=== PATIENT | male | born 1950 | race Caucasian/White ===

== ENCOUNTER 2020-12-29 01:40 | Day surgery (SDC) | payer MEDICARE, SELFPAY ==
[2020-12-15 14:25] VITALS: BMI 26.3
[2020-12-29 06:59] VITALS: BP 116/69; PULSE 63; RESP 18; TEMP 36.4; O2SAT 96; BMI 26.0
[2020-12-29] MEDS: LACTATED RINGERS 1,000 ML 150 ML IV CONT (07:05)
--- NOTE | 2020-12-29 07:58 | WPDANESEPPF ---
Anes - Initial Pre Proc Eval Procedure: Operation Date: 12/29/20 08:00 Proposed Procedures p Screening Colonoscopy - Wally Moreno MD Date/Time: 12/29/20 07:58 Surgeon: Wally Moreno MD Pre Op Diagnosis: neoplasm screening Patient Data Age: 70 Gender: M Height: 1.88 m Weight: 92 kg Last Vital Signs Temp 36.4 C L 12/29/20 06:59 Pulse 63 12/29/20 06:59 Resp 18 12/29/20 06:59 BP 116/69 12/29/20 06:59 Pulse Ox 96 12/29/20 06:59 Allergies Allergy/AdvReac Type Severity Reaction Status Date / Time No Known Allergies Allergy Verified 12/29/20 06:57 Home Medications Medication Instructions Recorded Confirmed Type carbamazepine 200 mg tablet 200 mg PO Q12H #180 tablet 12/21/19 12/15/20 Rx atorvastatin 20 mg tablet See Rx Instructions .ROUTE 08/21/20 12/15/20 Rx .COMPLEX #90 tablet cholecalciferol (vitamin D3) 1,250 1,250 mcg PO WEEKLY #12 cap 08/23/20 12/15/20 Rx mcg (50,000 unit) capsule fenofibrate 160 mg tablet 160 mg PO DAILY #90 tablet 08/23/20 12/15/20 Rx Patient hx anesthesia problems: none Family hx anesthesia problems: none PMFSH Past Medical History Medical History (Updated 08/21/20 @ 11:11 by Tanner Licea MD) Dyslipidemia Heart murmur Prostate cancer Right trigeminal neuralgia Vitamin D deficiency Surgical History Surgical History History of left inguinal hernia repair 07/2015 Family History Family History Mother Cerebrovascular accident Diabetes mellitus Father Family history of Alzheimer's disease Acute myocardial infarction Family history of cardiovascular disease Sibling Family history of arthritis Other Family history of malignant neoplasm Social History Social History Smoking status: Former smoker Tobacco type: cigarettes Second hand tobacco smoke exposure: No Smoking end date: 05/26/78 Alcohol intake: current Drinks per week: 1 Alcohol use details: 1 beer weekly Substance use: never Substance use type: does not use Living arrangements: with family Additional living arrangements comments: Spouse Gender identity (if verbalized by the patient): Male Spiritual care concerns: No Anes - Eval Final PreProcedure Day of Procedure 12/29/20 07:58 Patient weight: overweight Heart: regular rate and rhythm Lungs: clear to auscultation and normal air movement Airway: Mallampati scale class II Neurological: alert and oriented Last oral intake: >/= 8 hours ASA classification: III Emergent: no Anesthetic plan: proceed Anesthesia type and monitoring: general GIVS Informed Consent: The patient's anesthetic plan and its attendant risks and benefits were discussed with the patient/family/POA. Questions were solicited and answers provided to the satisfaction of the patient/family/POA.
--- NOTE | 2020-12-29 08:22 | PM.HPGS ---
History of Present Illness History of Present Illness Consent: Risks, benefits, and alternatives have been discussed and questions answered. Patient agrees to proceed with procedure. Chief complaint: neoplasm screening Narrative: Matthew Morrow is a 70 year old male here for first screening colonoscopy Review of Systems Constitutional: Constitutional: Denies headache(s) and Denies weakness Eyes: Eyes: Denies blurry vision ENT: Reports Normal hearing present, Denies headache(s) and Denies neck pain Cardiovascular: Cardiovascular: Denies chest pain and Denies dyspnea Respiratory: Respiratory: Denies dyspnea Gastrointestinal: Gastrointestinal: Reports no additional gastrointestinal complaints Genitourinary: Genitourinary: Denies dysuria Musculoskeletal: Musculoskeletal: Denies neck pain Integumentary/Breasts: Skin/Breast: Denies dry skin Neurologic: Reports Normal hearing present, Denies headache(s) and Denies weakness Psychiatric: Psychiatric: Denies anxiety Endocrine: Endocrine: Denies change in body appearance Hematologic/Lymphatic: Hematologic/Lymphatic: Denies easy bleeding Allergic/Immunologic: Allergic/Immunologic: Denies urticaria PMF Past Medical History Medical History (Updated 12/29/20 @ 08:22 by Wally Moreno MD) Colon cancer screening Dyslipidemia Heart murmur Prostate cancer Right trigeminal neuralgia Vitamin D deficiency Surgical History Surgical History History of left inguinal hernia repair 07/2015 Family History Family History Mother Cerebrovascular accident Diabetes mellitus Father Family history of Alzheimer's disease Acute myocardial infarction Family history of cardiovascular disease Sibling Family history of arthritis Other Family history of malignant neoplasm Social History Social History Smoking status: Former smoker Tobacco type: cigarettes Second hand tobacco smoke exposure: No Smoking end date: 05/26/78 Alcohol intake: current Drinks per week: 1 Alcohol use details: 1 beer weekly Substance use: never Substance use type: does not use Living arrangements: with family Additional living arrangements comments: Spouse Gender identity (if verbalized by the patient): Male Spiritual care concerns: No Meds Home Medications and Allergies Home Medications Medication Instructions Recorded Confirmed Type carbamazepine 200 mg tablet 200 mg PO Q12H #180 tablet 12/21/19 12/15/20 Rx atorvastatin 20 mg tablet See Rx Instructions .ROUTE 03/29/21 07/23/21 Rx .COMPLEX #90 tablet cholecalciferol (vitamin D3) 1,250 1,250 mcg PO WEEKLY #12 cap 08/23/20 12/15/20 Rx mcg (50,000 unit) capsule fenofibrate 160 mg tablet 160 mg PO DAILY #90 tablet 08/23/20 12/15/20 Rx Allergies Allergy/AdvReac Type Severity Reaction Status Date / Time No Known Allergies Allergy Verified 12/29/20 06:57 Vital Signs Vital Signs - 24 hr 12/29/20 06:59 Temperature 97.5 F L Pulse Rate 63 Respiratory Rate 18 Blood Pressure 116/69 Pulse Oximetry 96 Exam Const: General: comfortable and no acute distress HENMT: General nose exam: Normal nares present Eyes: General: appearance normal, both eyes and all related structures Neck: Neck: no JVD Resp: Auscultation: clear to auscultation bilaterally Cardio: Rate: regular rate Rhythm: regular rhythm GI: Inspection: non-distended GI Palp: Yes Soft to palpation Skin: General skin exam: normal color Neuro: General: gait normal Speech: normal speech Extrem: General: normal to inspection Psych: Mental Status: mental status grossly normal Assessment and Plan Assessment and plan (1) Colon cancer screening: Code(s): Z12.11 - Encounter for screening for malignant neoplasm of colon
--- NOTE | 2020-12-29 08:22 | SUR.OPER ---
Resolution Clip Lot: [id number] Exp: 2023-09-06
[2020-12-29 08:28] VITALS: BP 100/60; PULSE 53; RESP 16; O2SAT 100
[2020-12-29 08:38] VITALS: BP 106/61; BP 111/65; PULSE 50; PULSE 53; RESP 13; RESP 14; O2SAT 100; O2SAT 97
== END 2020-12-29 09:01 | disposition home or self-care (01) ==
PROVIDERS: PCP Family Medicine; Visit Provider Internal Medicine Gastroenterology
PROC: 0DJD8ZZ Inspection of Lower Intestinal Tract, Via Natural or Artificial Opening Endoscopic (ICD-10-PCS; CPT 45378; principal; 2020-12-29 08:00)
DX: Z12.11 Encounter for screening for malignant neoplasm of colon (principal); K57.30 Diverticulosis of large intestine without perforation or abscess without bleeding; K64.8 Other hemorrhoids; K63.5 Polyp of colon; K62.1 Rectal polyp; E78.5 Hyperlipidemia, unspecified; R01.1 Cardiac murmur, unspecified; E55.9 Vitamin D deficiency, unspecified; G50.0 Trigeminal neuralgia; Z87.891 Personal history of nicotine dependence
CPT/HCPCS: 45385; 88305; J2704; J7120

== ENCOUNTER 2021-08-31 09:37 | Outpatient (CLI) | payer MEDICARE, SELFPAY ==
--- NOTE | ~2021-08-31 | US_ITS ---
EXAMINATION: US aorta [facility] DATE: 08/31/2021 10:37 INDICATION: Abdominal aortic aneurysm screening with risk factors of hypercholesterolemia and prior s moking TECHNIQUE: Grayscale, color Doppler, and pulsed Doppler images of the aorta and common iliac arteries were obtained. COMPARISON: CT abdomen and pelvis dated 10/24/2017 FINDINGS: The proximal aorta measures 2.2 cm AP. The mid aorta measures 2.3 cm AP. Fusiform infrarenal abdomina l aorta measuring up to 3.7 x 3.6 cm. The right common iliac artery measures 1.5 cm. The left common iliac artery measures 1.2 cm. IMPRESSION: 1. Unchanged 3.7 cm diameter fusiform infrarenal abdominal aortic aneurysm. Reviewed, dictated and finalized at location B.
== END 2021-08-31 09:38 | disposition home or self-care (01) ==
PROVIDERS: PCP Family Medicine; Visit Provider Family Medicine
DX: I71.4 Abdominal aortic aneurysm, without rupture (principal); Z13.6 Encounter for screening for cardiovascular disorders
CPT/HCPCS: 76706

== ENCOUNTER 2021-09-14 09:20 | Outpatient (CLI) | payer MEDICARE, SELFPAY ==
--- NOTE | 2021-09-14 09:47 | ECHO_ITS ---
Patient Info Name: Matthew Morrow Age: 71 years : 1950 Gender: Male Ht: 74 in Wt: 205 lbs BSA: 2.21 m2 HR: 64 bpm BP: 110 / 72 mmHg Technical Quality: Good Exam Date: 09/14/2021 10:05 AM Exam Location: [facility] Patient Status: Outpatient Admit Date: 09/14/2021 Staff Ordering Physician: Tanner Licea MD Blow Moulding Machine Operator: Reji Carl, WILFREDO, RT Attending Provider: Tanner Licea MD Exam Type: CA echo doppler color flow Study Info Indications R01.1 - Cardiac murmur, unspecified Complete two-dimensional, color flow and Doppler transthoracic echocardiogram is performed. Strain analysis performed. Summary 1. Complete two-dimensional, color flow and Doppler transthoracic echocardiogram is performed. 2. Left ventricular chamber dimension is normal. 3. Left ventricular systolic function is normal, estimated at 65-70%. 4. The left ventricular diastolic function is normal. 5. E/e' 9 is minimally elevated. 6. Global longitudinal strain is normal at -22.3%. 7. There is moderate aortic valve sclerosis. 8. There is mild aortic valve stenosis with a peak velocity of 225 cm/s, mean gradient of 9 mmHg, and aortic valve area of 1.9 cm2. 9. There is mild to moderate aortic valve regurgitation. Left Ventricle E/e' 9 is minimally elevated. Global longitudinal strain is normal at -22.3%. Left ventricular chamber dimension is normal. Left ventricular systolic function is normal, estimated at 65-70%. The left ventricular diastolic function is normal. Right Ventricle Right ventricular chamber dimension is normal. Right ventricular systolic function is normal. Left Atria Left atrial chamber dimension is normal. Right Atria Right atrial chamber dimension is normal. Aortic Valve The aortic valve is trileaflet. There is moderate aortic valve sclerosis. There is mild aortic valve stenosis with a peak velocity of 225 cm/s, mean gradient of 9 mmHg, and aortic valve area of 1.9 cm2. There is mild to moderate aortic valve regurgitation. Pulmonic Valve There is no pulmonic regurgitation. Mitral Valve There is no mitral valve stenosis. There is no mitral valve regurgitation. Tricuspid Valve There is no tricuspid valve regurgitation. Pericardium/Pleural There is no pericardial effusion. Inferior Vena Cava Normal inferior vena cava with >50% collapse upon inspiration consistent with normal right atrial pressure, 5 mmHg. Aorta The aortic root size at the sinus of Valsalva is normal. Left Ventricular Outflow Tract Name Value Normal LVOT 2D LVOT Diameter 2.1 cm LVOT Doppler LVOT Peak Gradient 6 mmHg LVOT Mean Gradient 3 mmHg LVOT VTI 27 cm LVOT VTI/AV VTI Ratio 0.6 LVOT Stroke Volume 93 ml LVOT CO 5.2 l/min LVOT CI 2.4 l/min/m2 Mitral Valve Name Value No
== END 2021-09-14 09:21 | disposition home or self-care (01) ==
PROVIDERS: PCP Family Medicine; Visit Provider Family Medicine
DX: R01.1 Cardiac murmur, unspecified (principal); I35.1 Nonrheumatic aortic (valve) insufficiency
CPT/HCPCS: 93306

== ENCOUNTER 2022-02-26 09:36 | Outpatient (CLI) | payer MEDICARE, SELFPAY ==
[2022-02-26 18:39] LABS: Alanine Aminotransferase 18 U/L (6-50); Albumin Level 4.3 g/dL (3.5-5.1); Alkaline Phosphatase 33 U/L (38-126); Anion Gap 11 mmol/L (8-16); Aspartate Amino Transferase 50 U/L (17-59); Bilirubin,Total 0.3 mg/dL (0.2-1.3); Blood Urea Nitrogen 25 mg/dL (9-20); Calcium 8.8 mg/dL (8.4-10.2); Carbon Dioxide 25 mmol/L (22-30); Chloride 107 mmol/L (98-107); Estimated Glomerular Filt Rate > 60; Glucose 120 mg/dL (65-110); Sodium 143 mmol/L (137-145)
[2022-02-26 20:03] LABS: Hemoglobin A1C 5.9 % (<5.7)
== END 2022-02-26 09:37 | disposition home or self-care (01) ==
LOC: ANHGOSHLAB 09:38
PROVIDERS: PCP Family Medicine; Visit Provider Family Medicine
DX: E78.5 Hyperlipidemia, unspecified (principal); Z51.81 Encounter for therapeutic drug level monitoring; Z79.899 Other long term (current) drug therapy; I10 Essential (primary) hypertension; R73.03 Prediabetes
CPT/HCPCS: 36415; 80053; 83036

== ENCOUNTER 2022-09-03 08:57 | Outpatient (CLI) | payer MEDICARE, SELFPAY ==
[2022-09-03 19:10] LABS: Basophils Absolute Auto 0.1 K/mm3 (0.0-0.1); Basophils Percent Auto 1.3 % (0.2-1.2); Eosinophils Absolute Auto 0.2 K/mm3 (0-0.3); Eosinophils Percent Auto 4.3 % (0-4.4); Hematocrit 40.3 % (42.0-52.0); Hemoglobin 13.3 g/dL (14.0-18.0); Immature Granulocyte Absolute 0.02 K/mm3 (0.00-0.031); Immature Granulocyte Percent A 0.4 % (0-0.5); Lymphocytes Absolute Auto 1.32 K/mm3 (0.9-3.2); Lymphocytes Percent Auto 24.8 % (18.3-44.2); Mean Corpuscular Hemoglobin 30.9 pg (26-34); Mean Corpuscular Volume 93.7 fl (80-100); Mean Platelet Volume 10.1 fl (7.4-10.4); Monocytes Absolute Auto 0.4 K/mm3 (0.1-0.6); Monocytes Percent Auto 8.3 % (2.6-8.5); Neutrophils Absolute Auto 3.2 K/mm3 (1.3-6.7); Neutrophils Percent Auto 60.9 % (45.5-73.1); Platelet Count Result 257 k/mm3 (150-375); Red Cell Distribution Width 12.5 % (11.5-14.5); White Blood Count 5.3 K/mm3 (4.5-10.0)
[2022-09-03 19:14] LABS: Hemoglobin A1C 5.8 % (<5.7)
[2022-09-03 19:23] LABS: Alanine Aminotransferase 21 U/L (6-50); Albumin Level 4.4 g/dL (3.5-5.1); Alkaline Phosphatase 35 U/L (38-126); Anion Gap 5 mmol/L (8-16); Aspartate Amino Transferase 35 U/L (17-59); Bilirubin,Total 0.4 mg/dL (0.2-1.3); Blood Urea Nitrogen 21 mg/dL (9-20); Calcium 9.1 mg/dL (8.4-10.2); Carbon Dioxide 28 mmol/L (22-30); Chloride 108 mmol/L (98-107); Cholesterol 186 mg/dL (0-200); Estimated Glomerular Filt Rate > 60; Glucose 109 mg/dL (65-110); HDL Direct 42 mg/dL; Potassium 4.3 mmol/L (3.4-5.0); Sodium 141 mmol/L (137-145); Triglycerides 132 mg/dL (<150)
[2022-09-03 19:34] LABS: LDL Cholesterol Direct 107 mg/dL
[2022-09-03 19:49] LABS: Vitamin D 25 Hydroxy 48.7 ng/mL
== END 2022-09-03 08:58 | disposition home or self-care (01) ==
LOC: ANHGOSHLAB 08:58
PROVIDERS: PCP Family Medicine; Visit Provider Family Medicine
DX: E78.5 Hyperlipidemia, unspecified (principal); E55.9 Vitamin D deficiency, unspecified; G50.0 Trigeminal neuralgia; Z13.29 Encounter for screening for other suspected endocrine disorder; E53.8 Deficiency of other specified B group vitamins; C61 Malignant neoplasm of prostate; Z79.899 Other long term (current) drug therapy; R73.03 Prediabetes
CPT/HCPCS: 36415; 80053; 80061; 82306; 82607; 83036; 84443; 85025

== ENCOUNTER 2023-02-25 10:34 | Outpatient (CLI) | payer MEDICARE, SELFPAY ==
[2023-02-25 19:30] LABS: Alanine Aminotransferase 18 U/L (6-50); Albumin Level 4.4 g/dL (3.5-5.1); Alkaline Phosphatase 33 U/L (38-126); Anion Gap 10 mmol/L (8-16); Aspartate Amino Transferase 30 U/L (17-59); Bilirubin,Total 0.5 mg/dL (0.2-1.3); Blood Urea Nitrogen 29 mg/dL (9-20); Carbon Dioxide 22 mmol/L (22-30); Chloride 108 mmol/L (98-107); Estimated Glomerular Filt Rate 54; Glucose 94 mg/dL (65-110); Potassium 4.3 mmol/L (3.4-5.0); Sodium 140 mmol/L (137-145)
[2023-02-25 20:10] LABS: Hemoglobin A1C 5.8 % (<5.7)
== END 2023-02-25 10:35 | disposition home or self-care (01) ==
PROVIDERS: PCP Family Medicine; Visit Provider Family Medicine
DX: R73.03 Prediabetes (principal); E78.5 Hyperlipidemia, unspecified; Z79.899 Other long term (current) drug therapy
CPT/HCPCS: 36415; 80053; 83036

== ENCOUNTER 2023-09-08 10:03 | Outpatient (CLI) | payer MEDICARE, SELFPAY ==
[2023-09-08 11:07] LABS: Alanine Aminotransferase 16 U/L (6-50); Albumin Level 4.5 g/dL (3.5-5.1); Alkaline Phosphatase 39 U/L (38-126); Anion Gap 7 mmol/L (4-12); Aspartate Amino Transferase 29 U/L (17-59); Bilirubin,Total 0.5 mg/dL (0.2-1.3); Blood Urea Nitrogen 23 mg/dL (9-20); Calcium 9.8 mg/dL (8.4-10.2); Carbon Dioxide 24 mmol/L (22-30); Chloride 110 mmol/L (98-107); Cholesterol 185 mg/dL (0-200); Estimated Glomerular Filt Rate > 60; Glucose 115 mg/dL (65-110); HDL Direct 48 mg/dL; Potassium 4.4 mmol/L (3.4-5.0); Sodium 141 mmol/L (137-145); Triglycerides 121 mg/dL (<150)
[2023-09-08 11:19] LABS: LDL Cholesterol Direct 102 mg/dL
[2023-09-08 11:57] LABS: Vitamin B12 > 1000.0 pg/mL (239-931)
[2023-09-08 12:03] LABS: Basophils Absolute Auto 0.1 K/mm3 (0.0-0.1); Eosinophils Absolute Auto 0.2 K/mm3 (0-0.3); Eosinophils Percent Auto 3.8 % (0-4.4); Hemoglobin 13.7 g/dL (14.0-18.0); Immature Granulocyte Absolute 0.02 K/mm3 (0.00-0.031); Immature Granulocyte Percent A 0.4 % (0-0.5); Lymphocytes Absolute Auto 1.03 K/mm3 (0.9-3.2); Lymphocytes Percent Auto 20.4 % (18.3-44.2); Mean Corpuscular HGB Conc 33.4 g/dl (32-36); Mean Corpuscular Hemoglobin 31.1 pg (26-34); Mean Corpuscular Volume 93.2 fl (80-100); Mean Platelet Volume 9.8 fl (7.4-10.4); Monocytes Absolute Auto 0.4 K/mm3 (0.1-0.6); Monocytes Percent Auto 7.1 % (2.6-8.5); Neutrophils Absolute Auto 3.4 K/mm3 (1.3-6.7); Neutrophils Percent Auto 67.3 % (45.5-73.1); Platelet Count Result 257 k/mm3 (150-375); Red Cell Distribution Width 12.5 % (11.5-14.5); White Blood Count 5.1 K/mm3 (4.5-10.0)
[2023-09-08 12:34] LABS: Hemoglobin A1C 5.8 % (<5.7)
[2023-09-08 15:41] LABS: Vitamin D 25 Hydroxy 38.9 ng/mL
== END 2023-09-08 10:04 | disposition home or self-care (01) ==
LOC: ANHGOSHLAB 10:07
PROVIDERS: PCP Family Medicine; Visit Provider Family Medicine
DX: I35.0 Nonrheumatic aortic (valve) stenosis (principal); E53.8 Deficiency of other specified B group vitamins; R73.03 Prediabetes; G50.0 Trigeminal neuralgia; Z13.29 Encounter for screening for other suspected endocrine disorder; Z79.899 Other long term (current) drug therapy; E78.5 Hyperlipidemia, unspecified; E55.9 Vitamin D deficiency, unspecified
CPT/HCPCS: 36415; 80053; 80061; 82306; 82607; 83036; 84443; 85025

== ENCOUNTER 2023-09-18 08:49 | Outpatient (CLI) | payer MEDICARE, SELFPAY ==
--- NOTE | ~2023-09-18 | US_ITS ---
EXAMINATION: US aorta DATE: 09/18/2023 10:17 INDICATION: Abdominal aortic aneurysm without rupture TECHNIQUE: Grayscale, color Doppler, and pulsed Doppler images of the aorta and common iliac arteries were obtained. COMPARISON: None. FINDINGS: The proximal aorta measures 3.1 cm. The mid aorta measures 2.5 cm. Fusiform distal abdominal aortic a neurysm measuring up to 4.1 cm in maximal AP diameter The right common iliac artery measures 7 mm. Th e left common iliac artery measures 7 mm. IMPRESSION: 1. Minimal increase in size of a previously 3.7 cm, currently 4.1 cm fusiform distal abdominal aortic aneurysm. Reviewed, dictated and finalized at location A. IMPRESSION: 1. Minimal increase in size of a previously 3.7 cm, currently 4.1 cm fusiform d istal abdominal aortic aneurysm.
== END 2023-09-18 08:50 | disposition home or self-care (01) ==
PROVIDERS: PCP Family Medicine; Visit Provider Family Medicine
DX: I71.40 Abdominal aortic aneurysm, without rupture, unspecified (principal)
CPT/HCPCS: 76775

== ENCOUNTER 2024-03-16 08:59 | Outpatient (CLI) | payer MEDICARE, SELFPAY ==
[2024-03-16 13:06] LABS: Alanine Aminotransferase 17 U/L (6-50); Albumin Level 4.6 g/dL (3.5-5.1); Alkaline Phosphatase 35 U/L (38-126); Anion Gap 8 mmol/L (4-12); Aspartate Amino Transferase 26 U/L (17-59); Bilirubin,Total 0.4 mg/dL (0.2-1.3); Blood Urea Nitrogen 23 mg/dL (9-20); Calcium 9.6 mg/dL (8.4-10.2); Carbon Dioxide 27 mmol/L (22-30); Chloride 106 mmol/L (98-107); Estimated Glomerular Filt Rate > 60; Glucose 100 mg/dL (65-110); Potassium 5.1 mmol/L (3.4-5.0); Sodium 141 mmol/L (137-145)
[2024-03-16 16:58] LABS: Hemoglobin A1C 6.2 % (<5.7)
== END 2024-03-16 09:00 | disposition home or self-care (01) ==
LOC: ANHGOSHLAB 09:00
PROVIDERS: PCP Family Medicine; Visit Provider Family Medicine
DX: E78.5 Hyperlipidemia, unspecified (principal); Z79.899 Other long term (current) drug therapy; R73.03 Prediabetes
CPT/HCPCS: 36415; 80053; 83036

== ENCOUNTER 2024-06-16 01:26 | Day surgery (SDC) | payer MEDICARE, SELFPAY ==
[2024-06-03 15:48] VITALS: BMI 26.2
--- NOTE | 2024-06-16 07:18 | P.PNAN_ITS ---
Anes - Initial Pre Proc Eval Procedure: Operation Date: 06/16/24 08:30 Proposed Procedures p Colonoscopy - Wally Moreno MD Date/Time: 06/16/24 07:18 Surgeon: Wally Moreno MD Pre Op Diagnosis: hx of colon polyps Patient Data Age: 74 Gender: M Height: 1.88 m Weight: 92.7 kg Allergies Allergy/AdvReac Type Severity Reaction Status Date / Time No Known Allergies Allergy Verified 06/03/24 15:46 Home Medications ?Medication ?Instructions ?Recorded ?Confirmed ?Type carbamazepine 200 mg tablet 200 mg PO Q12H #180 tabs 12/21/19 06/03/24 Rx denosumab 60 mg/mL subcutaneous 60 mg subcut [id number] 02/19/21 06/03/24 History syringe (Prolia) leuprolide (3 month) 22.5 mg (3 22.5 mg IM [id number] 02/19/21 06/03/24 History month) intramuscular syringe kit (Lupron Depot) calcium carbonate (Calcium 600) 600 mg PO DAILY 09/03/22 06/03/24 History cyanocobalamin (vitamin B-12) 1,000 mcg sublingual DAILY #90 tabs 09/04/22 06/03/24 Rx 1,000 mcg sublingual tablet fenofibrate 160 mg tablet 160 mg PO DAILY #90 tabs 12/31/23 06/03/24 Rx atorvastatin 20 mg tablet 20 mg PO QHS #90 tabs 04/01/24 06/03/24 Rx cholecalciferol (vitamin D3) 50 50 mcg PO DAILY #90 tabs 04/01/24 06/03/24 Rx mcg (2,000 unit) tablet Patient hx anesthesia problems: none Family hx anesthesia problems: none Results Review: All pre-operative results and documents have been reviewed as part of the pre- operative evaluation. [facility] Past Medical History Medical History Vitamin B12 deficiency Aortic valvar stenosis Aneurysm of infrarenal abdominal aorta Pre-diabetes Vitamin D deficiency Prostate cancer (~2017) Dyslipidemia Right trigeminal neuralgia Surgical History Surgical History History of left inguinal hernia repair 07/2015 Family History Family History Mother Cerebrovascular accident Diabetes mellitus Father Family history of Alzheimer's disease Acute myocardial infarction Family history of cardiovascular disease Sibling Family history of arthritis Other Family history of malignant neoplasm Social History Social History Smoking status: Former smoker Tobacco type: cigarettes Second hand tobacco smoke exposure: No Smoking end date: 01/25/72 Alcohol intake: current Drinks per week: 1 Alcohol use details: 1 beer weekly Substance use: never Substance use type: does not use Lack of Transportation: No Lack of Food: Never True Current Housing: I Have Housing Concerned About Future Housing: No Difficulty Paying Gas/Electric Bills: No Difficulty Paying for Meds: No Currently Unemployed: No Education: Bachelor's Degree Difficulty w/ Childcare or Family Care: No Living arrangements: with family Additional living arrangements comments: Spouse Occupation/Education: retired Gender identity (if verbalized by the patient): Male Sexual Orientation (if Verbalized by the Patient): Straight or Heterosexual Spiritual care concerns: No Anes - Eval Final PreProcedure Day of Procedure 06/16/24 07:18 Patient weight: overweight Heart: regular rate and rhythm Lungs: clear to auscultation Airway: Mallampati scale class II Neurological: alert and oriented Last oral intake: >/= 8 hours ASA classification: III Emergent: no Anesthetic plan: proceed Anesthesia type and monitoring: general GIVS and standard monitoring Results Review: All pre-operative results and documents have been reviewed as part of the pre- operative evaluation. Informed Consent: The patient's anesthetic plan and its attendant risks and benefits were discussed with the patient/family/POA. Questions were solicited and answers provided to the satisfaction of the patient/family/POA.
[2024-06-16 07:20] VITALS: BP 91/75; PULSE 75; RESP 18; TEMP 36.1; O2SAT 95
[2024-06-16] MEDS: LACTATED RINGERS 1,000 ML 150 ML IV CONT (07:32)
--- NOTE | 2024-06-16 07:59 | PM.HPGS ---
History of Present Illness History of Present Illness Consent: Risks, benefits, and alternatives have been discussed and questions answered. Patient agrees to proceed with procedure. Chief complaint: hx of colon polyps Narrative: Matthew Morrow is a 74 year old male with colon polyps in 2020 Review of Systems Review of Systems: All systems reviewed & are unremarkable except as noted in HPI and below PMFSH Past Medical History Medical History (Updated 06/16/24 @ 08:00 by Wally Moreno MD) Colon polyp Vitamin B12 deficiency Aortic valvar stenosis Aneurysm of infrarenal abdominal aorta Pre-diabetes Vitamin D deficiency Prostate cancer (~2017) Dyslipidemia Right trigeminal neuralgia Surgical History Surgical History History of left inguinal hernia repair 07/2015 Family History Family History Mother Cerebrovascular accident Diabetes mellitus Father Family history of Alzheimer's disease Acute myocardial infarction Family history of cardiovascular disease Sibling Family history of arthritis Other Family history of malignant neoplasm Social History Social History Smoking status: Former smoker Tobacco type: cigarettes Second hand tobacco smoke exposure: No Smoking end date: 01/25/72 Alcohol intake: current Drinks per week: 1 Alcohol use details: 1 beer weekly Substance use: never Substance use type: does not use Lack of Transportation: No Lack of Food: Never True Current Housing: I Have Housing Concerned About Future Housing: No Difficulty Paying Gas/Electric Bills: No Difficulty Paying for Meds: No Currently Unemployed: No Education: Bachelor's Degree Difficulty w/ Childcare or Family Care: No Living arrangements: with family Additional living arrangements comments: Spouse Occupation/Education: retired Gender identity (if verbalized by the patient): Male Sexual Orientation (if Verbalized by the Patient): Straight or Heterosexual Spiritual care concerns: No Meds Home Medications and Allergies Home Medications ?Medication ?Instructions ?Recorded ?Confirmed ?Type carbamazepine 200 mg tablet 200 mg PO Q12H #180 tabs 12/21/19 06/16/24 Rx denosumab 60 mg/mL subcutaneous 60 mg subcut [id number] 02/19/21 06/03/24 History syringe (Prolia) leuprolide (3 month) 22.5 mg (3 22.5 mg IM [id number] 02/19/21 06/03/24 History month) intramuscular syringe kit (Lupron Depot) calcium carbonate (Calcium 600) 600 mg PO DAILY 09/03/22 06/16/24 History cyanocobalamin (vitamin B-12) 1,000 mcg sublingual DAILY #90 tabs 09/04/22 06/16/24 Rx 1,000 mcg sublingual tablet fenofibrate 160 mg tablet 160 mg PO DAILY #90 tabs 12/31/23 06/16/24 Rx atorvastatin 20 mg tablet 20 mg PO QHS #90 tabs 04/01/24 06/16/24 Rx cholecalciferol (vitamin D3) 50 50 mcg PO DAILY #90 tabs 04/01/24 06/16/24 Rx mcg (2,000 unit) tablet Allergies Allergy/AdvReac Type Severity Reaction Status Date / Time No Known Allergies Allergy Verified 06/03/24 15:46 Vital Signs Vital Signs - 24 hr 06/16/24 07:20 Temperature 97 F L Pulse Rate 75 Respiratory Rate 18 Blood Pressure 91/75 L Pulse Oximetry 95 Oxygen Delivery Room Air Exam Const: General: comfortable and no acute distress HENMT: Face/Nose/Sinus: Normal nares present Eyes: General: appearance normal, both eyes and all related structures Neck: Neck: no JVD Resp: Auscultation: clear to auscultation bilaterally Cardio: Rate: regular rate Rhythm: regular rhythm GI: Inspection: non-distended GI Palp: Yes Soft to palpation Skin: General skin exam: normal color Neuro: Speech: normal speech Extrem: General: normal to inspection Psych: Mental Status: mental status grossly normal Assessment and Plan Assessment and plan (1) Colon polyp: Code(s): K63.5 - Polyp of colon Status: Acute Assessment and Plan: colonoscopy
[2024-06-16 08:13] VITALS: BP 90/55; PULSE 61; RESP 18; O2SAT 95
[2024-06-16 08:23] VITALS: BP 83/55; PULSE 61; RESP 16; O2SAT 96
[2024-06-16 08:33] VITALS: BP 102/61; PULSE 57; RESP 16; O2SAT 97
--- OUTSIDE RECORDS SUMMARY | 2024-06-17 21:08 | XMS_ITS ---
Author Organization [facility] Address [address] [place] [address] Care Team Providers Care Pot Sander Name Role Phone Carmelo Espinosa MD Unavailable [phone] Denny Dubose MD Unavailable Tyson Licea MD Primary Care Provider Active Problems Problem Noted Date Diagnosed Date Trigeminal neuralgia 01/06/2020 Assessment & Plan (01/05/2021 8:31 AM CDT): Patient continues on carbamazepine 200 mg b.i.d. for symptomatic suppression of trigeminal neuralgia with good tolerability and efficacy. I have renewed his carbamazepine 200 mg b.i.d.. He will follow-up in neurology clinic in a year. Assessment & Plan (01/06/2020 11:08 AM CDT): Patient has history of right trigeminal neuralgia with prior symptomatic benefit with carbamazepine. At the time of my last visit with him in August 2019, since he has been asymptomatic for extended period of time, he was mutually decided to try weaning him off medication and assess outcome. About 2 weeks following cessation of therapy, he had resumption of his previous electrical shocks in the distribution of the right ophthalmic and right maxillary divisions of the trigeminal nerve. Per my earlier discussion with him, he resumed the carbamazepine 200 mg b.i.d. with prompts cessation of symptoms. He remains on therapy at this time with no tolerability issues. I would recommend continuing on therapy with carbamazepine 200 mg b.i.d. for the foreseeable future. I have renewed his carbamazepine with a 90 day supply and 3-90 day refill extensions. I will plan on seeing him back in 1 year's time. Medication monitoring encounter 01/06/2020 Assessment & Plan (01/06/2020 11:09 AM CDT): Patient has had recent sodium level and CBC performed, and those have been reviewed by me today with him being on carbamazepine treatment. He will need sodium levels and CBC performed on a yearly basis while on carbamazepine therapy, and those can be obtained with his yearly follow-up. Adenocarcinoma of prostate 11/12/2017 Current Oncology Plans DENOSUMAB (PROLIA) INJECTION* Plan Start Date:01/21/2019 Plan Provider:Denny Dubose MD Linked Problems Adenocarcinoma of prostate ( HCC) Treatment Medications No medications scheduled. Leuprolide Every 3 Months - Prostate* Plan Start Date:12/05/2020 Plan Provider:Denny Dubose MD Linked Problems Adenocarcinoma of prostate ( HCC) Treatment Medications Current Day (Day 1 , Cycle 17 - Planned for 08/17/2024) Next Day (Day 1, Cycle 18 - Planned for 11/09/2024) leuprolide (3 month) (ELIGARD)leuprolide (ELIGARD) leuprolide (3 month) (ELIGARD) subcutaneous injection 22.5 mg leuprolide (3 month) (ELIGARD) subcutaneous injection 22.5 mg Past Plans Line Care Plan Name Start Date Discontinue Date Treatment Medications Discontinue Reason Plan Provider IV MAINTENANCE THERAPY PLAN 08/21/2021 08/05/2023 No medications scheduled. Automatic discontinuation of dormant plans Denny Dubose MD Oncology Chemotherapy Treatment Plan Name Start Date Discontinue Date Treatment Medications Discontinue Reason Plan Provider Cycles DOCEtaxel / PredniSONE 21 day Cycles - Prostate 11/20/2017 07/22/2018 DOCEtaxel (TAXOTERE)DOCE taxel (TAXOTERE) IVPB in 250 mL (vial 20mg/mL) Therapy Complete Denny Dubose MD -1 of 7 cycles Oncology Supportive Care Plan Name Start Date Discontinue Date Treatment Medications Discontinue Reason Plan Provider IV MAINTENANCE THERAPY PLAN 12/11/2017 08/05/2023 No medications scheduled. Automatic discontinuation of dormant plans Clint Bruno MD PhD Radiation Treatments * No radiation treatments are documented for this patient in [facility]. Treatments may have been administered in another system. Lifetime Dose Tracking * Chemical Lifetime Dose Automatic Entry Manual Entr y DLP 6,449 mGycm 6,449 mGycm 0 mGycm
--- OUTSIDE RECORDS SUMMARY | 2024-06-17 21:08 | XMS_ITS | Continuity of Care Document ---
Author Organization [facility] Address [address] [address] [place] [address] Phone Care Team Providers Care Camp Manager Name Role Phone [facility] Unavailable [...] Diagnoses Date Provider Providers Copied on Encounter [facility], [address] [place] [address] [facility] [address], [place], [place], [id number], tel:[phone] [facility] No Information 9 [facility] . [address] [place] [address], [id number], [place]. tel:[phone] Consulting Provider: Gillian Avina, [address] [place], [address]. tel:[phone] [facility], [address] [place], [place] [address] [address], [place], [place], [id number], tel:[phone] [facility] No Information 4-200 8 [facility] . [address] [place] [address], [id number], [place]. tel:[phone] Referring Provider: Alok Slater OD Tracie, [address] [facility] [address] [facility], [place], [address]. tel:[phone] lting Provider: Gillian Avina, [address] [place], [address]. tel:[phone] [facility], [address], [place], [place], [id number], tel:[phone] [facility] No Information 0-200 8 Slater OD Alok. [address] [facility] [facility] [address] , [address], [place], [address], [place]. tel:[phone] Family History Family Member Type Diagnosis Age At Onset No Information Payers Payer name Insurance type Covered republican ID Authoriza tion(s) No Information Social History [...]
--- OUTSIDE RECORDS SUMMARY | 2024-06-17 21:08 | XMS_ITS | Referral Summary ---
Author Organization [facility] Address [address] [place] [address] Care Team Providers Care Maintenance Clerk Name Role Phone Carmelo Espinosa MD Unavailable [phone] Denny Dubose MD Unavailable Tyson Licea MD Primary Care Provider Encounters Date Type Department Care Team Description 05/25/2024 10:45 AM PLANT CLERK Infusion [facility] - Infusion [address] [facility] Floor [address] [place] [address] Adenocarcinoma of prostate (HCC) (Primary Dx) 05/25/2024 8:45 AM PLANT CLERK Lab [facility] - Lab Collection [address] [facility] 5 [place] [address] Adenocarcinoma of prostate (HCC) 05/25/2024 9:45 AM PLANT CLERK Office Visit [facility] Oncology [address] [facility] Floor 5 [place] [address] Denny Dubose MD Adenocarcinoma of prostate (HCC) (Primary Dx) from Last 3 Months Allergies No known active allergies Medications atorvastatin (LIPITOR) 20 mg tablet 12/24/2018 Active leuprolide, 3 month, (ELIGARD) 22.5 mg syringe Inject 22.5 mg under the skin as directed Active denosumab (PROLIA) 60 mg/mL syringe Inject under the skin once One dose every 6 months Active cholecalciferol (VITAMIN D-3) 50,000 unit capsule 10/01/2020 Active fenofibrate (TRIGLIDE) 160 mg tablet Take 1 tablet (160 mg total) by mouth daily Active calcium carb and citrate-vitD3 600 mg-12.5 mcg (500 unit) tablet extended release Take by mouth daily Active CYANOCOBALAMIN (VIT B-12) 1,000 MCG/15 ML ORAL LIQUIDIndicatio ns:Prevention of Vitamin B12 Deficiency Take 15 mL (1,000 mcg total) by mouth daily Patients takes every other day Active carBAMazepine (TEGretol) 200 mg tabletIndicatio ns:Trigeminal neuralgia Take 1 Tablet (200 mg) by mouth 2 times daily. 180 tablet 3 01/05/2024 Active Active Problems Problem Noted Date Diagnosed Date [...] his yearly follow-up. Adenocarcinoma of prostate 11/12/2017 Immunizations Name Administration Dates Next Due COVID-19 MRNA (MODERNA) .5 M L (50 MCG) VACCINE (12 YEARS AND UP) 02/10/2023 Influenza, Quadrivalent, Hig h Dose, Preservative Free, Intrr 03/12/2023,01/20/2020 Influenza, Quadrivalent, Spl it, Preservative Free, Intramuscular 02/14/2022 Influenza, Trivalent, High D ose, Split, Preservative Free, Intramuscular 03/11/2019,04/21/2018 Influenza, Unspecified 03/12/2023 Pfizer SARS-CoV-2 Monovalent Vaccination (12+ Yrs) PURPLE 08/10/2020,07/20/2020 Pneumococcal Conjugate PCV 13 07/29/2018 Pneumococcal Polysaccharide PPV23 12/01/2019 Tdap 08/19/2022 ZOSTER Recombinant 10/03/2018,07/30/2018 Social History Tobacco Use Types Packs/Day Years Used Date Smoking Tobacco: Former Cigarettes Q uit: 1981 Smokeless Tobacco: Never Sex and Gender Information Value Date Recorded Sex Assigned at Not on file Legal Sex Male 12:38 PM CDT Gender Identity Male 04/15/2019 11:26 PM PLANT CLERK Sexual Orientation Straight 10/08/2018 10 :46 AM CDT Last Filed Vital Signs Vital Sign Reading Time Taken Comments Blood Pressure 103/69 05/25/2024 8:33 AM PLANT CLERK Pulse 61 05/25/2024 8:33 AM PLANT CLERK Temperature 36.5 ??C (97.7 ??F) 05/25/2024 8:33 AM CS T Respiratory Rate 18 05/25/2024 8:33 AM PLANT CLERK Oxygen Saturation 96% 05/25/2024 8:33 AM PLANT CLERK Inhaled Oxygen Concentration - - Weight 93.6 kg (206 lb 6.4 oz) 05/25/2024 8:33 A M PLANT CLERK Height 188 cm (6' 2 ) 01/07/2024 8:20 AM CDT Body Mass Index 26.5 01/07/2024 8:20 AM CDT Plan of Treatment Not on file Procedures Procedure Name Priority Date/Time Associated Diagnosis Comments EGFR Routine 05/25/2024 8:23 AM PLANT CLERK Adenocarcinoma of prostate (HCC) DIFFERENTIAL AUTO Routine 05/25/2024 8:2 3 AM PLANT CLERK Adenocarcinoma of prostate (HCC) LACTATE DEHYDROGENASE Routine 05/25/2024 8:23 AM PLANT CLERK Adenocarcinoma of prostate (HCC) CBC WITH AUTO DIFFERENTIAL Routine 05/25/2024 8:23 AM PLANT CLERK Adenocarcinoma of prostate (HCC) COMPREHENSIVE METABOLIC PANEL Routine 05/25/2024 8:23 AM PLANT CLERK Adenocarcinoma of prostate (HCC) PSA DIAGNOSTIC Routine 05/25/2024 8:23 AM PLANT CLERK Adenocarcinoma of prostate (HCC) CT CHEST ABDOMEN PELVIS W CONTRAST Schedule Routine, Read Routine (OP Routine) 12/02/2023 11:50 AM CDT Adenocarcinoma of prostate (HCC) from Last 3 Months or Most Recently Relevant to Health Maintenance Results * (ABNORMAL) eGFR (05/25/2024 8:23 AM PLANT CLERK) eGFR 59(L) >=60 mL/min/1. 73 m2 Comment: Interpretive Data Reference Interval Normal ?>/= 90 mL/min/1.73m2 Mildly decreased* ? 60 - 89 mL/min/1.73m2 Mildly to moderately decreased ?45 - 59 mL/min/1.73m2 Moderately to severely decreased ??30 - 44 mL/min/1.73m2 Severely decreased ?15 - 29 mL/min/1.73m2 Kidney Failure ?< 15 ??mL/min/1.73m2 *Relative to young adult level Estimated glomerular filtration rate is determined by the 2021 CKD-EPI equation recommended by the National Kidney Foundation (A Unifying Approach to GFR Estimation: Recommendations of the NKF-ASK Task Force on Reassessing the Inclusion of Race in Diagnosing Kidney Disease, JASN 2020). The CKD-EPI equation should not be used for patients with unstable renal function and has not been validated in children and those over 70. Current interpretive data was last reviewed 2021. Blood 05/25/2024 8:23 AM PLANT CLERK 05/25/2024 8:28 AM PLANT CLERK us Denny Dubose MD LAB BLOOD ORDERABLES Final Resul t KIM MCCLELLAND [facility] Department [place] [address] * Differential, auto (05/25/2024 8:23 AM PLANT CLERK) Neutrophil abs 4.3 1.5 - 6.5 K/cumm Comment:Testing performed by : [facility] [place][Note 2] Heme Lab, [address] [place] [phone] Lymphocyte abs 1.5 0.8 - 3.3 K/cumm CERNISA MCCLELLAND Comment:Testing performed by : [facility] [place][Note 2] Heme Lab, [address] [place] [phone] Monocyte abs 0.5 0.2 - 0.8 K/cumm KIM BJ Comment:Testing performed by : [facility] [place][Note 2] Heme Lab, [address] [place] [phone] Eosinophil abs 0.3 0.0 - 0.5 K/cumm CERNISA BJ Comment:Testing performed by : [facility] [place][Note 2] Heme Lab, [address] [place] [phone] Basophil abs 0.1 0.0 - 0.1 K/cumm CERNISA BJ Comment:Testing performed by : [facility] [place][Note 2] Heme Lab, [address] [place] [phone] Neutrophil pct 65.5 % KIM MCCLELLAND Comment: Interpretive Data Percent cell count reference ranges are not reported, since discordance with absolute values may lead to misinterpretation of CBC data. Current Interpretive Data was last revised on 2017. Testing performed by: [facility] [place][Note 2] Heme Lab, [address] [place] [phone] Lymphocyte pct 22.0 % CERNISA MCCLELLAND Comment: Interpretive Data Percent cell count reference ranges are not reported, since discordance with absolute values may lead to misinterpretation of CBC data. Current Interpretive Data was last revised on 2017. Testing performed by: [facility] [place][Note 2] Heme Lab, [address] [place] [phone] Monocyte pct 7.0 % CERNISA MCCLELLAND Comment: Interpretive Data Percent cell count reference ranges are not reported, since discordance with absolute values may lead to misinterpretation of CBC data. Current Interpretive Data was last revised on 2017. Testing performed by: [facility] [place][Note 2] Heme Lab, [address] [place] [phone] Eosinophil pct 4.2 % KIM MCCLELLAND Comment: Interpretive Data Percent cell count reference ranges are not reported, since discordance with absolute values may lead to misinterpretation of CBC data. Current Interpretive Data was last revised on 2017. Testing performed by: [facility] [place][Note 2] Heme Lab, [address] [place] [phone] Basophil pct 1.3 % CERNISA MCCLELLAND Comment: Interpretive Data Percent cell count reference ranges are not reported, since discordance with absolute values may lead to misinterpretation of CBC data. Current Interpretive Data was last revised on 2017. Testing performed by: [facility] [place][Note 2] Heme Lab, [address] [place] [phone] Blood 05/25/2024 8:23 AM PLANT CLERK 05/25/2024 8:26 AM PLANT CLERK us Denny Dubose MD LAB BLOOD ORDERABLES Final Resul t JAYROINSA KRYSTIN [facility] Department [place] [address] * CBC with auto differential (05/25/2024 8:23 AM PLANT CLERK) [facility] WBC 6.6 3.8 - 9.9 K/cumm Comment:Testing performed by : [facility] [place][Note 2] Heme Lab, [address] [place] [address] Hgb 14.5 13.0 - 17.5 g/dL CERNER BJ Comment:Testing performed by : [facility] [place][Note 2] Heme Lab, [address] [place], [place] [phone] Hct 42.1 38.9 - 50.3 % CERNER BJ Comment:Testing performed by : [facility] [place][Note 2] Heme Lab, [address] [place] [address] Plt 275 150 - 400 K/cumm CERNER BJ Comment:Testing performed by : [facility] [place][Note 2] Heme Lab, [address] [place] [address] MPV 7.4 6.8 - 10.4 fL CERNER BJ Comment:Testing performed by : [facility] [place][Note 2] Heme Lab, [address] [place] [address] RBC 4.67 4.30 - 5.80 M/cumm CERNER BJ Comment:Testing performed by : [facility] [place][Note 2] Heme Lab, [address] [place] [address] MCV 90.3 81.3 - 96.4 fL CERNER BJ Comment:Testing performed by : [facility] [place][Note 2] Heme Lab, [address] [place], [place] [phone] MCH 31.1 27.1 - 33.3 pg CERNER BJ Comment:Testing performed by : [facility] [place][Note 2] Heme Lab, [address] [place] [address] MCHC 34.5 32.3 - 35.7 g/dL CERNER BJ Comment:Testing performed by : [facility] [place][Note 2] Heme Lab, [address] [place] [address] RDW CV 13.0 11.1 - 14.9 % CERNER BJ Comment:Testing performed by : [facility] [place][Note 2] Heme Lab, [address] [place] [address] NRBC abs 0.00 0.00 - 0.01 K/cumm CERNER BJ Comment:Testing performed by : [facility] [place][Note 2] Heme Lab, [address] [place] [address] Blood 05/25/2024 8:23 AM PLANT CLERK 05/25/2024 8:26 AM PLANT CLERK Denny Dubose MD LAB BLOOD ORDERABLES Final Resul t Performing Organization Address [facility] de Phone Number KIM [facility] Department [place] [address] * PSA diagnostic (05/25/2024 8:23 AM PLANT CLERK) PSA-Total 0.03 <=6.20 ng/mL Comment: Interpretive Data ?AGE ? SEX ?REFERENCE INTERVAL 0 minutes-150 years ?Female ?None 0 minutes-49 years ? Male ?None ? 50-59 years ? Male ?0-3.90 ? 60-69 years ? Male ?0-5.40 ? 70-79 years ? Male ?0-6.20 ? 80-150 years ?Male ?0-6.20 The Juan Manuel PSA Total assay procedure was used. Results from different manufacturers or methods may not be comparable. Serial testing should be performed using the same method. Current interpretive data last revised 21. Blood 05/25/2024 8:23 AM PLANT CLERK 05/25/2024 8:28 AM PLANT CLERK Denny Dubose MD LAB BLOOD ORDERABLES Final Resul t Performing Organization Address [facility] de Phone Number [facility] [place] [address] * Lactate dehydrogenase (LD) (05/25/2024 8:23 AM PLANT CLERK) Lactate dehydrogenase (LDH) 193 100 - 250 Units/L Blood 05/25/2024 8:23 AM PLANT CLERK 05/25/2024 8:28 AM PLANT CLERK us Denny Dubose MD LAB BLOOD ORDERABLES Final Resul t [facility] Department [place] [address] * (ABNORMAL) Comprehensive metabolic panel (05/25/2024 8:23 AM PLANT CLERK) Pathologist [facility] Sodium 144 135 - 145 mmol/L Potassium, pl 5.5(H) 3.3 - 4.9 mmol/L [facility] Chloride 109 97 - 110 mmol/L [facility] CO2 28 22 - 32 mmol/L [facility] Anion gap 7 2 - 15 mmol/L [facility] BUN 17 6 - 25 mg/dL [facility] Creatinine 1.26 0.80 - 1.30 mg/dL [facility] Glucose 114 70 - 199 mg/dL [facility] Comment: Interpretive Data Fasting glucose >/= 126 mg/dl is diagnostic for diabetes. ?? Fasting is defined as no caloric intake for at least 8 hours. Fasting glucose between 100 mg/dl to 125 mg/dl is diagnostic of prediabetes. In a patient with classic symptoms of hyperglycemia or hyperglycemic crisis, a random glucose >/= 200 mg/dl is diagnostic for diabetes. In the absence of unequivocal hyperglycemia, results should be confirmed by repeat testing. The classification and Diagnosis of Diabetes Diabetes Care 2021; 46: S19-S40. Current interpretive data was last revised 2022. Calcium 9.6 8.5 - 10.3 mg/dL [facility] Bilirubin, total 0.3 0.1 - 1.2 mg/dL [facility] Protein, pl 7.4 6.5 - 8.5 g/dL [facility] Albumin 4.4 3.5 - 5.0 g/dL [facility] Alk phos 35(L) 40 - 130 Units/L [facility] ALT 16 7 - 55 Units/L [facility] AST 22 10 - 50 Units/L [facility] Blood 05/25/2024 8:23 AM PLANT CLERK 05/25/2024 8:28 AM PLANT CLERK us Denny Dubose MD LAB BLOOD ORDERABLES Final Resul t [facility] Department [place] [address] * CT chest abdomen pelvis with contrast (12/02/2023 11:50 AM CDT) Anatomical Region Laterality Modality Body N/A Computed Tomogra phy 12/02/2023 12:2 6 PM CDT Impressions 12/02/2023 2:28 PM CDT 1. No evidence of metastatic disease in the chest, abdomen or pelvis. Please see report for same day bone scintigraphy for further evaluation. 2. Stable 3.9 cm infrarenal abdominal aortic aneurysm. Dictated by: Rd Kenny MD, PHD The radiology attending physician has personally reviewed this study, and had reviewed and/or edited this written report and agrees with it. Electronically signed by: Talha Mccann M.D. Narrative 12/02/2023 2:28 PM CDT EXAMINATION: ??Computed tomography of the chest, abdomen and pelvis with intravenous contrast HISTORY: Metastatic prostate cancer. TECHNIQUE: ??Transaxial computed tomographic images of the chest, abdomen and pelvis were obtained with intravenous contrast according to the standard protocol after the uneventful administration of 75 mL Opti-Ray 350 intravenous contrast. COMPARISON: 03/25/2023 FINDINGS: ?? Chest: The imaged heart size is within normal limits. ??No pericardial effusion. Aortic valve calcifications are present. Calcified coronary artery disease is present. ??There is calcified and noncalcified plaque involving the thoracic aorta, which is not aneurysmal. ??No supraclavicular or axillary lymphadenopathy. ??No mediastinal or hilar lymphadenopathy. No pleural effusion or pneumothorax. ??Unchanged mild peripheral reticulations in both lungs are in keeping with mild fibrotic interstitial lung abnormality. ??There is mild dependent atelectasis in the lung bases. ??The lungs are otherwise clear. ??No suspicious pulmonary nodule. Abdomen/Pelvis: Probably hepatic steatosis. Cholelithiasis without evidence of acute cholecystitis. ??Gallbladder fundal adenomyomatosis. ??The pancreas and spleen are normal. ??Adrenal glands are normal. ??Kidneys enhance symmetrically. ??No hydronephrosis. ??Urinary bladder is nondistended. Prostatic calcifications are present. No ascites or pneumoperitoneum. ??The large bowel is normal in caliber. ??There is colonic diverticulosis without evidence of acute diverticulitis. ??Appendix and small bowel are normal. ??No bowel obstruction. ??There is a stable 3.9 cm infrarenal abdominal aortic aneurysm with crescentic mural thrombus. ??No lymphadenopathy in the abdomen or pelvis. No suspicious osseous lesion. ??Unchanged severe central height loss of the L4 vertebral body, which may be due to prominent superior and inferior Schmorl's nodes. ??Mild height loss at T7 is unchanged. Procedure Note Talha Mccann MD - 12/02/2023 EXAMINATION: Computed tomography of the chest, abdomen and pelvis with intravenous contrast HISTORY: Metastatic prostate cancer. TECHNIQUE: Transaxial computed tomographic images of the chest, abdomen and pelvis were obtained with intravenous contrast according to the standard protocol after the uneventful administration of 75 mL Opti-Ray 350 intravenous contrast. COMPARISON: 03/25/2023 FINDINGS: Chest: The imaged heart size is within normal limits. No pericardial effusion. Aortic valve calcifications are present. Calcified coronary artery disease is present. There is calcified and noncalcified plaque involving the thoracic aorta, which is not aneurysmal. No supraclavicular or axillary lymphadenopathy. No mediastinal or hilar lymphadenopathy. No pleural effusion or pneumothorax. Unchanged mild peripheral reticulations in both lungs are in keeping with mild fibrotic interstitial lung abnormality. There is mild dependent atelectasis in the lung bases. The lungs are otherwise clear. No suspicious pulmonary nodule. Abdomen/Pelvis: Probably hepatic steatosis. Cholelithiasis without evidence of acute cholecystitis. Gallbladder fundal adenomyomatosis. The pancreas and spleen are normal. Adrenal glands are normal. Kidneys enhance symmetrically. No hydronephrosis. Urinary bladder is nondistended. Prostatic calcifications are present. No ascites or pneumoperitoneum. The large bowel is normal in caliber. There is colonic diverticulosis without evidence of acute diverticulitis. Appendix and small bowel are normal. No bowel obstruction. There is a stable 3.9 cm infrarenal abdominal aortic aneurysm with crescentic mural thrombus. No lymphadenopathy in the abdomen or pelvis. No suspicious osseous lesion. Unchanged severe central height loss of the L4 vertebral body, which may be due to prominent superior and inferior Schmorl's nodes. Mild height loss at T7 is unchanged. IMPRESSION: 1. No evidence of metastatic disease in the chest, abdomen or pelvis. Please see report for same day bone scintigraphy for further evaluation. 2. Stable 3.9 cm infrarenal abdominal aortic aneurysm. Dictated by: Rd Kenny MD, PHD The radiology attending physician has personally reviewed this study, and had reviewed and/or edited this written report and agrees with it. Electronically signed by: Talha Mccann M.D. Denny Dubose MD IMG CT PROCEDURES Final Result from Last 3 Months or Most Recently Relevant to Health [place] [address] [employer] MEDICARE [facility] MEDICARE [facility] MEDICARE Care Teams Maintenance Clerk Relationship Specialty Start Date End Date Tyson Licea MD [address] [place] [address] DR YANG [address] [place] [address] PCP - General Family Practice 01/21/19 Carmelo Espinosa MD Consulting Physician Urology 11/06/17 Denny Dubose MD [address] [facility] [address] [place] [address] Medical Oncologist/Tar Processing Technician Medical Oncology 11/13/17
--- OUTSIDE RECORDS SUMMARY | 2024-06-17 21:08 | XMS_ITS | Encounter Summary ---
Author Organization [facility] Address [address] [place] [address] Phone Care Team Providers Care Vocational Rehabilitation Supervisor Name Role Phone Carmelo Espinosa MD Unavailable [phone] Denny Dubose MD Unavailable Tyson Licea MD Primary Care Provider Encounter Details Date Type Department Care Team (Latest Contact Info) Description 08/22/2020 Orders Only [facility] Scanning, Provider Social History Tobacco Use Types Packs/Day Years Used Date Smoking Tobacco: Former Cigarettes Q uit: 1981 Smokeless Tobacco: Never Sex and Gender Information Value Date Recorded Sex Assigned at Not on file Legal Sex Male 12:38 PM CDT Gender Identity Male 04/15/2019 11:26 PM COLLET GLUER Sexual Orientation Straight 10/08/2018 10 :46 AM CDT documented as of this encounter Plan of Treatment Not on file documented as of this encounter Procedures Procedure Name Priority Date/Time Associated Diagnosis Comments SCAN - LABS 08/22/2020 documented in this encounter Results * SCAN - LABS (08/22/2020) us Provider Scanning Final Result documented in this encounter Visit Diagnoses Not on filedocumented in this encounter Care Teams Vocational Rehabilitation Supervisor Relationship Specialty Start Date End Date Tyson Licea MD [address] [facility] [address] [address] PCP - General Family Practice 01/21/19 Carmelo Espinosa MD Consulting Physician Urology 11/06/17 Denny Dubose MD [address] [facility] [address] [place] [address] Medical Oncologist/Preform Plate Maker Medical Oncology 11/13/17 documented as of this encounter
--- OUTSIDE RECORDS SUMMARY | 2024-06-17 21:08 | XMS_ITS | Encounter Summary ---
Author Organization [facility] Address [address] [place] [address] Phone Care Team Providers Care Materials Development Engineer Name Role Phone Carmelo Espinosa MD Unavailable [phone] Denny Dubose MD Unavailable Tyson Licea MD Primary Care Provider Encounter Details Date Type Department Care Team (Latest Contact Info) Description 08/31/2021 Orders Only [facility] Scanning, Provider Social History Tobacco Use Types Packs/Day Years Used Date Smoking Tobacco: Former Cigarettes Q uit: 1981 Smokeless Tobacco: Never Sex and Gender Information Value Date Recorded Sex Assigned at Not on file Legal Sex Male 12:38 PM CDT Gender Identity Male 04/15/2019 11:26 PM SPIKE DRIVER Sexual Orientation Straight 10/08/2018 10 :46 AM CDT documented as of this encounter Plan of Treatment Not on file documented as of this encounter Procedures Procedure Name Priority Date/Time Associated Diagnosis Comments SCAN - RADIOLOGY/IMAGING 08/31/2021 documented in this encounter Results * SCAN - RADIOLOGY/IMAGING (08/31/2021) Anatomical Region Laterality Modality Other us Provider Scanning Final Result documented in this encounter Visit Diagnoses Not on filedocumented in this encounter Care Teams Materials Development Engineer Relationship Specialty Start Date End Date Tyson Licea MD [address] [facility] [place] [address] PCP - General Family Practice 01/21/19 Carmelo Espinosa MD Consulting Physician Urology 11/06/17 Denny Dubose MD [address] [address] Medical Oncologist/Die Lay Out Worker Medical Oncology 11/13/17 documented as of this encounter
--- OUTSIDE RECORDS SUMMARY | 2024-06-17 21:08 | XMS_ITS | Clinical Summary ---
Author Organization [facility] Address [address] [place] [address] Care Team Providers Care Head Athletic Trainer Name Role Phone Unavailable Primary Care Provider Unavailabl e Social History Tobacco Use Types Packs/Day Years Used Date Smoking Tobacco: Never Assessed Sex and Gender Information Value Date Recorded Sex Assigned at Not on file Legal Sex Male 3:33 PM MAINTENANCE FOREMAN Gender Identity Not on file Sexual Orientation Not on file Plan of Treatment Health Maintenance Due Date Last Done Comments Hepatitis C Virus (HCV) Screening 1950 TdaP Immunization 1949 Colonoscopy 1994 Colorectal Cancer Screening 1994 Cologuard 1999 Immunochemical Fecal Occult Blood 1999 Pneumococcal Immunization (5 0+ years) (1 of 1 - PCV) 1999 Zoster Immunization (1 of 2) 1999 Influenza Immunization (#1) 2024 04/21/2018 SARS-COV-2 Immunization ( season) 2024 08/10/2020, 07/20/2020 Respiratory Syncytial Virus (RSV) Immunization (Adult) (1 - 1-dose 75+ series) 2024 Hepatitis B Immunization Aged Out No longer eligible based on patient's age to complete this topic Meningococcal Immunization (ACWY) Aged Out No longer eligible b ased on patient's age to complete this topic Rotavirus Immunization Aged Out No lo nger eligible based on patient's age to complete this topic
--- OUTSIDE RECORDS SUMMARY | 2024-06-17 21:08 | XMS_ITS | Clinical Summary ---
Author Organization [facility] Address [address] [facility] Attn: Epic Prelude ADT [place]AN [place] [address] Care Team Providers Care Senior Art Director Name Role Phone Unavailable Primary Care Provider Unavailabl e Allergies No known active allergies Medications cyanocobalamin (VITAMIN B-12) 1,000 mcg Tablet, Sublingual Place 1 Tablet (1,000 mcg) under tongue daily. 90 Tablet 2 09/04/2022 Active fenofibrate (LOFIBRA) 160 mg Tablet Take 1 Tablet (160 mg) by mouth daily. 90 Tablet 1 04/12/2023 10:51 AM SEWER 12/26/2022 Active fenofibrate (LOFIBRA) 160 mg Tablet Take 1 Tablet (160 mg) by mouth daily. 90 Tablet 1 04/10/2024 11:59 AM SEWER 12/31/2023 Active carBAMazepine (TEGretol) 200 mg tablet Take 1 Tablet (200 mg) by mouth 2 times daily. 180 Tablet 3 04/02/2024 9:52 AM SEWER 01/05/2024 Active atorvastatin (LIPITOR) 20 mg tablet Take 1 Tablet (20 mg) by mouth daily at bedtime. 90 Tablet 1 04/02/2024 9:52 AM SEWER 04/01/2024 Active cholecalciferol, Vitamin D3, 50 mcg (2,000 unit) Tablet Take 1 Tablet (2,000 Units) by mouth daily. 90 Tablet 1 04/02/2024 9:52 AM SEWER 04/01/2024 Active Immunizations Immunization Administration Dates Next Due (ADACEL/BOOSTRIX)(10 YR UP) TDAP VACCINE, 0.5ML, IM 08/19/2022 INFLUENZA VACCINE HIGH DOSE QUADRIVALENT 65 YR U P PF IM 03/12/2023 INFLUENZA VACCINE QUADRIVALENT 6 MOS UP PF IM Social History Tobacco Use Types Packs/Day Years Used Date Smoking Tobacco: Never Assessed Sex and Gender Information Value Date Recorded Sex Assigned at Not on file Legal Sex Male 3:27 PM CDT Gender Identity Not on file Sexual Orientation Not on file Plan of Treatment Health Maintenance Due Date Last Done Comments COLORECTAL SCREENING 1994 Colorectal Cancer Screening 1994 FIT-DNA Q 3 years 1994 FIT/FOBT Q 1 year 1994 Flex Sig/CT Colonography Q 5 years 1994 PNEUMOCOCCAL VACCINE 65+ YEA RS (1 of 1 - PCV) 1999 ZOSTER VACCINE (1 of 2) 1999 INFLUENZA VACCINE (#1) 2023 03/12/2023, 2021 RSV VACCINE (60+ or ) (1 - 1-dose 75+ series) 2024 DTAP/TDAP/TD VACCINES (2 - Td or Tdap) 08/19/2032 Insurance RX [employer]OURKE PLANS (INTERNAL) [facility] RX AETNA Medicare Part D
--- OUTSIDE RECORDS SUMMARY | 2024-06-17 21:08 | XMS_ITS | Encounter Summary ---
Author Organization [facility] Address [address] [place] [address] Phone Care Team Providers Care Agricultural Real Estate Agent Name Role Phone Carmelo Espinosa MD Unavailable [phone] Denny Dubose MD Unavailable Tyson Licea MD Primary Care Provider Encounter Details Date Type Department Care Team (Latest Contact Info) Description 09/14/2021 Orders Only [facility] Scanning, Provider Social History Tobacco Use Types Packs/Day Years Used Date Smoking Tobacco: Former Cigarettes Q uit: 1981 Smokeless Tobacco: Never Sex and Gender Information Value Date Recorded Sex Assigned at Not on file Legal Sex Male 12:38 PM CDT Gender Identity Male 04/15/2019 11:26 PM MEDICAID COLLECTION SPECIALIST Sexual Orientation Straight 10/08/2018 10 :46 AM CDT documented as of this encounter Plan of Treatment Not on file documented as of this encounter Procedures Procedure Name Priority Date/Time Associated Diagnosis Comments CARDIOLOGY DOCUMENT SCAN 09/14/2021 documented in this encounter Results * CARDIOLOGY DOCUMENT SCAN (09/14/2021) Anatomical Region Laterality Modality Other us Provider Scanning CV CARDIAC SERVICES PROCEDURES Final Result documented in this encounter Visit Diagnoses Not on filedocumented in this encounter Care Teams Agricultural Real Estate Agent Relationship Specialty Start Date End Date Tyson Licea MD [address] [facility] [facility] [address] [place] [address], [place] [address] PCP - General Family Practice 01/21/19 Carmelo Espinosa MD Consulting Physician Urology 11/06/17 Denny Dubose MD [address] [address] Medical Oncologist/Project Manager Senior Medical Oncology 11/13/17 documented as of this encounter
--- OUTSIDE RECORDS SUMMARY | 2024-06-17 21:08 | XMS_ITS | Clinical Summary ---
Author Organization [facility] Address [address] [place] [address] Care Team Providers Care Hospitalist Name Role Phone Carmelo Espinosa MD Unavailable [phone] Denny Dubose MD Unavailable Tyson Licea MD Primary Care Provider Allergies No known active allergies Medications atorvastatin [...] his yearly follow-up. Adenocarcinoma of prostate 11/12/2017 Encounters Date Type Department Care Team Description 05/25/2024 10:45 AM CARTON FORMING MACHINE OPERATOR Infusion [facility] - Infusion [facility] Floor [address] [place] [address] Adenocarcinoma of prostate (HCC) (Primary Dx) 05/25/2024 9:45 AM CARTON FORMING MACHINE OPERATOR Office Visit [facility] Oncology [facility] Floor [address] [place] [address] Denny Dubose MD Adenocarcinoma of prostate (HCC) (Primary Dx) 05/25/2024 8:45 AM CARTON FORMING MACHINE OPERATOR Lab [facility] - Lab Collection [address] [facility] Floor [address] [place] [address] Adenocarcinoma of prostate (HCC) from Last 3 Months Immunizations Name Administration Dates Next Due COVID-19 [...] PPV23 12/01/2019 Tdap 08/19/2022 ZOSTER Recombinant 10/03/2018,07/30/2018 Surgical History Surgery Date Site/Laterality Comments HERNIA REPAIR Medical History Medical History Date Comments Trigeminal neuralgia Prostate cancer (HCC) High cholesterol Family History Medical History Relation Name Comments Dementia Father Heart disease Father Breast cancer Father's Sister Diabetes Mother Heart disease Mother Rheum arthritis Sister 1 No Known Problems Sister 2 No Known Problems Sister 3 Relation Name Status Comments Father Father's Sister Mother Sister 1 Alive Sister 2 Alive Sister 3 Alive Social History Tobacco Use Types Packs/Day Years Used Date Smoking Tobacco: Former Cigarettes Q uit: 1981 Smokeless Tobacco: Never Sex and Gender Information Value Date Recorded Sex Assigned at Not on file Legal Sex Male 12:38 PM CDT Gender Identity Male 04/15/2019 11:26 PM CARTON FORMING MACHINE OPERATOR Sexual Orientation Straight 10/08/2018 10 :46 AM CDT Obstetrics History Last Filed Vital Signs Vital Sign Reading Time Taken Comments Blood Pressure 103/69 05/25/2024 8:33 AM CARTON FORMING MACHINE OPERATOR Pulse 61 05/25/2024 8:33 AM CARTON FORMING MACHINE OPERATOR Temperature 36.5 ??C (97.7 ??F) 05/25/2024 8:33 AM CS T Respiratory Rate 18 05/25/2024 8:33 AM CARTON FORMING MACHINE OPERATOR Oxygen Saturation 96% 05/25/2024 8:33 AM CARTON FORMING MACHINE OPERATOR Inhaled Oxygen Concentration - - Weight 93.6 kg (206 lb 6.4 oz) 05/25/2024 8:33 A M CARTON FORMING MACHINE OPERATOR Height 188 cm (6' 2 ) 01/07/2024 8:20 AM CDT Body Mass Index 26.5 01/07/2024 8:20 AM CDT Plan of Treatment Health Maintenance Due Date Last Done Comments Colon Cancer Screening-Colonoscopy 1949 Depression Screening 1949 Fall Risk Assessment 1949 Hepatitis C Screening 1949 Hepatitis B Screening 1967 Well Visit 65+ 2014 Influenza Vaccine (#1) 2024 , 03/12/2023, 02/14/2022, Additional history exists Covid-19 Vaccine (2023-2 5 season) 2024 03/02/2024, 08/11/2023, 02/10/2023, Additional history exists DTaP/Tdap/Td Vaccine (2 - Td or Tdap) 08/19/2032 08/19/2022 Zoster Vaccine Completed 10/03/2018, 07/30/2018 Pneumococcal vaccine 65+ Completed 12/01/2019, 10/2018 Abdominal Aortic Aneurysm (A AA) Screen Completed 12/02/2023, 10/10/2023, 10/10/2023, Additional history exists Procedures Procedure Name Priority Date/Time Associated Diagnosis Comments EGFR Routine 05/25/2024 8:23 AM CARTON FORMING MACHINE OPERATOR Adenocarcinoma of prostate (HCC) DIFFERENTIAL AUTO Routine 05/25/2024 8:2 3 AM CARTON FORMING MACHINE OPERATOR Adenocarcinoma of prostate (HCC) LACTATE DEHYDROGENASE Routine 05/25/2024 8:23 AM CARTON FORMING MACHINE OPERATOR Adenocarcinoma of prostate (HCC) CBC WITH AUTO DIFFERENTIAL Routine 05/25/2024 8:23 AM CARTON FORMING MACHINE OPERATOR Adenocarcinoma of prostate (HCC) COMPREHENSIVE METABOLIC PANEL Routine 05/25/2024 8:23 AM CARTON FORMING MACHINE OPERATOR Adenocarcinoma of prostate (HCC) PSA DIAGNOSTIC Routine 05/25/2024 8:23 AM CARTON FORMING MACHINE OPERATOR Adenocarcinoma of prostate (HCC) CT CHEST ABDOMEN PELVIS W CONTRAST Schedule Routine, Read Routine (OP Routine) 12/02/2023 11:50 AM CDT Adenocarcinoma of prostate (HCC) from Last 3 Months or Most Recently Relevant to Health Maintenance Results * (ABNORMAL) eGFR (05/25/2024 8:23 AM CARTON FORMING MACHINE OPERATOR) eGFR 59(L) >=60 mL/min/1. 73 m2 Comment: Interpretive Data Reference Interval Normal ?>/= 90 mL/min/1.73m2 Mildly decreased* ? 60 - 89 mL/min/1.73m2 Mildly to moderately decreased ?45 - 59 mL/min/1.73m2 Moderately to severely decreased ??30 - 44 mL/min/1.73m2 Severely decreased ?15 - 29 mL/min/1.73m2 Kidney Failure ?< 15 ??mL/min/1.73m2 *Relative to young adult level Estimated glomerular filtration rate is determined by the 2020 CKD-EPI equation recommended by the National Kidney [...] last reviewed 2021. Blood 05/25/2024 8:23 AM CARTON FORMING MACHINE OPERATOR 05/25/2024 8:28 AM CARTON FORMING MACHINE OPERATOR us Denny Dubose MD LAB BLOOD ORDERABLES Final [facility]ul t [facility] [place] [address] * Differential, auto (05/25/2024 8:23 AM CARTON FORMING MACHINE OPERATOR) Neutrophil abs 4.3 1.5 - 6.5 K/cumm Comment:Testing performed by : [facility], [address] [place] [phone] Lymphocyte abs 1.5 0.8 - 3.3 K/cumm [facility] Comment:Testing performed by : [facility], [address] [place] [address] Monocyte abs 0.5 0.2 - 0.8 K/cumm [facility] Comment:Testing performed by : [facility], [address] [place] [address] Eosinophil abs 0.3 0.0 - 0.5 K/cumm [facility] Comment:Testing performed by : [facility], [address] [place] [phone] Basophil abs 0.1 0.0 - 0.1 K/cumm [facility] Comment:Testing performed by : [facility], [address] [place] [phone] Neutrophil pct 65.5 % [facility] Comment: Interpretive Data Percent cell count reference ranges are not reported, since discordance with absolute values may lead to misinterpretation of CBC data. Current Interpretive Data was last revised on 2017. Testing performed by: [facility], [address] [place] [phone] Lymphocyte pct 22.0 % [facility] Comment: Interpretive Data Percent cell count reference ranges are not reported, since discordance with absolute values may lead to misinterpretation of CBC data. Current Interpretive Data was last revised on 2017. Testing performed by: [facility], [address] [place] [phone] Monocyte pct 7.0 % [facility] Comment: Interpretive Data Percent cell count reference ranges are not reported, since discordance with absolute values may lead to misinterpretation of CBC data. Current Interpretive Data was last revised on 2017. Testing performed by: [facility], [address] [place] [phone] Eosinophil pct 4.2 % [facility] Comment: Interpretive Data Percent cell count reference ranges are not reported, since discordance with absolute values may lead to misinterpretation of CBC data. Current Interpretive Data was last revised on 2017. Testing performed by: [facility], [address] [place] [address] Basophil pct 1.3 % [facility] Comment: Interpretive Data Percent cell count reference ranges are not reported, since discordance with absolute values may lead to misinterpretation of CBC data. Current Interpretive Data was last revised on 2017. Testing performed by: [facility], [address] [place] [address] Blood 05/25/2024 8:23 AM CARTON FORMING MACHINE OPERATOR 05/25/2024 8:26 AM CARTON FORMING MACHINE OPERATOR us Denny Dubose MD LAB BLOOD ORDERABLES Final Resul t [facility] Department of Laboratories [place], [place] [id number] * CBC with auto differential (05/25/2024 8:23 AM CARTON FORMING MACHINE OPERATOR) WBC 6.6 3.8 - 9.9 K/cumm Comment:Testing performed by : [facility], [address] [place] [address] Hgb 14.5 13.0 - 17.5 g/dL [facility] Comment:Testing performed by : [facility], [address] [place] [address] Hct 42.1 38.9 - 50.3 % [facility] Comment:Testing performed by : [facility], [address] [place] [address] Plt 275 150 - 400 K/cumm [facility] Comment:Testing performed by : [facility], [address] [place] [address] MPV 7.4 6.8 - 10.4 fL [facility] Comment:Testing performed by : [facility], [address] [place] [address] RBC 4.67 4.30 - 5.80 M/cumm [facility] Comment:Testing performed by : [facility], [address] [place] [address] MCV 90.3 81.3 - 96.4 fL [facility] Comment:Testing performed by : [facility], [address] [place] [address] MCH 31.1 27.1 - 33.3 pg [facility] Comment:Testing performed by : [facility], [address] [place] [address] MCHC 34.5 32.3 - 35.7 g/dL [facility] Comment:Testing performed by : [facility], [address] [place] [address] RDW CV 13.0 11.1 - 14.9 % [facility] Comment:Testing performed by : [facility], [address] [place] [address] NRBC abs 0.00 0.00 - 0.01 K/cumm [facility] Comment:Testing performed by : [facility], [address] [place] [address] Blood 05/25/2024 8:23 AM CARTON FORMING MACHINE OPERATOR 05/25/2024 8:26 AM CARTON FORMING MACHINE OPERATOR us Denny Dubose MD LAB BLOOD ORDERABLES Final Resul t [facility] [place] [address] * PSA diagnostic (05/25/2024 8:23 AM CARTON FORMING MACHINE OPERATOR) PSA-Total 0.03 <=6.20 ng/mL Comment: Interpretive Data ?AGE ? SEX ?REFERENCE INTERVAL 0 minutes-150 years ?Female ?None 0 minutes-49 years ? Male ?None ? 50-59 years ? Male ?0-3.90 ? 60-69 years ? Male ?0-5.40 ? 70-79 years ? Male ?0-6.20 ? 80-150 years ?Male ?0-6.20 The [employer] PSA Total assay procedure was used. Results from different manufacturers or methods may not be comparable. Serial testing should be performed using the same method. Current interpretive data last revised 21. Blood 05/25/2024 8:23 AM CARTON FORMING MACHINE OPERATOR 05/25/2024 8:28 AM CARTON FORMING MACHINE OPERATOR us Denny Dubose MD LAB BLOOD ORDERABLES Final Resul t Performing Organization Address [facility] de Phone Number [facility] [place] [address] * Lactate dehydrogenase (LD) (05/25/2024 8:23 AM CARTON FORMING MACHINE OPERATOR) Lactate dehydrogenase (LDH) 193 100 - 250 Units/L Blood 05/25/2024 8:23 AM CARTON FORMING MACHINE OPERATOR 05/25/2024 8:28 AM CARTON FORMING MACHINE OPERATOR us Denny Dubose MD LAB BLOOD ORDERABLES Final Resul t Performing Organization Address [facility] de Phone Number [facility] [place] [address] * (ABNORMAL) Comprehensive metabolic panel (05/25/2024 8:23 AM CARTON FORMING MACHINE OPERATOR) Sodium 144 135 - 145 mmol/L Potassium, pl 5.5(H) 3.3 - 4.9 mmol/L [facility] Chloride 109 97 - 110 mmol/L [facility] CO2 28 22 - 32 mmol/L [facility] Anion gap 7 2 - 15 mmol/L [facility] BUN 17 6 - 25 mg/dL [facility] Creatinine 1.26 0.80 - 1.30 mg/dL [facility] Glucose 114 70 - 199 mg/dL [facility] Comment: Interpretive Data Fasting glucose >/= 126 [...] 2022. Calcium 9.6 8.5 - 10.3 mg/dL [facility] Bilirubin, total 0.3 0.1 - 1.2 mg/dL [facility] Protein, pl 7.4 6.5 - 8.5 g/dL [facility] Albumin 4.4 3.5 - 5.0 g/dL [facility] Alk phos 35(L) 40 - 130 Units/L [facility] ALT 16 7 - 55 Units/L [facility] AST 22 10 - 50 Units/L [facility] Blood 05/25/2024 8:23 AM CARTON FORMING MACHINE OPERATOR 05/25/2024 8:28 AM CARTON FORMING MACHINE OPERATOR us Denny Dubose MD LAB BLOOD ORDERABLES Final Resul t [facility] [place] [address] * CT chest abdomen pelvis with contrast [...] Most Recently Relevant to Health Maintenance Insurance AETNA MEDICARE AETNA MEDICARE [facility] MEDIC[facility] Care Teams Hospitalist Relationship Specialty Start Date End Date Tyson Licea MD [address] [facility] [address] [address] PCP - General Family Practice 01/21/19 Carmelo Espinosa MD Consulting Physician Urology 11/06/17 Denny Dubose MD [address] [facility] [address] [place] [address] Medical Oncologist/Hotel Maintenance Worker Medical Oncology 11/13/17
== END 2024-06-16 08:48 | disposition home or self-care (01) ==
PROVIDERS: PCP Family Medicine; Referring Provider Nurse Practitioner; Visit Provider Internal Medicine Gastroenterology
PROC: 0DJD8ZZ Inspection of Lower Intestinal Tract, Via Natural or Artificial Opening Endoscopic (ICD-10-PCS; CPT 45378; principal; 2024-06-16 08:30)
DX: Z12.11 Encounter for screening for malignant neoplasm of colon (principal); K64.8 Other hemorrhoids; K57.30 Diverticulosis of large intestine without perforation or abscess without bleeding; E78.5 Hyperlipidemia, unspecified; R73.03 Prediabetes; E55.9 Vitamin D deficiency, unspecified; E53.8 Deficiency of other specified B group vitamins; I35.0 Nonrheumatic aortic (valve) stenosis; I71.43 Infrarenal abdominal aortic aneurysm, without rupture; G50.0 Trigeminal neuralgia; Z98.890 Other specified postprocedural states; Z86.0100 Personal history of colon polyps, unspecified; Z87.891 Personal history of nicotine dependence; Z85.46 Personal history of malignant neoplasm of prostate; Z80.9 Family history of malignant neoplasm, unspecified; Z82.49 Family history of ischemic heart disease and other diseases of the circulatory system
CPT/HCPCS: G0105; J2704; J7120

== ENCOUNTER 2025-03-28 15:13 | Outpatient (CLI) | payer MEDICARE, SELFPAY ==
--- OUTSIDE RECORDS SUMMARY | 2008-09-19 18:00 | XMS_ITS | Continuity of Care Document ---
Author Organization [facility] Address [address] [place] [address] Phone Care Team Providers Care Bed Maker Name Role Phone [facility] Unavailable Unavail able Gillian Avina Unavailable Unavailable Procedures Procedure Date Anti-reflective Coating Progressive Lens Per Lens Ultra Deluxe Frame Tint Photochromatic, Hi Index 8 Lens-Index>1.66Plas;>1.80Glas 8 Anti-reflective Coating Eye Exam, New Patient Refraction Advance Directives Directive Yes / No Effective Date File Name No Information Encounters Encounter Description Practice Location Reason(s) For Visit Diagnoses Date Provider Providers Copied on Encounter [facility], [address] [place], [place] [address], [place], [place], [id number], tel:[phone] [facility] No Information 9 [facility] . [address] [place] [address], [id number], [place]. tel:[phone] Consulting Provider: Gillian Avina, [address] [place], [address]. tel:[phone] [facility], [address] [place], [place] [address], [place], [place], [id number], tel:[phone] [facility] No Information 4-200 8 [facility] . [address] [place] [address], [id number], [place]. tel:[phone] Referring Provider: Alok Slater OD Tracie, [address], [place], [address]. tel:[phone] lting Provider: Gillian Avina, [address] [place], [address]. tel:[phone] [facility], [address], [place], [place], [id number], tel:[phone] [facility] No Information 0-200 8 Slater OD Alok. [address] , [address], [place], [address], [place]. tel:[phone] Family History Family Member Type Diagnosis Age At Onset No Information Payers Payer name Insurance type Covered alliance party ID Authoriza tion(s) No Information Social History Type Description Quantity Date Captured Comments Sex Female Smoking Status No Information Chief Complaint And Reason For Visit No Information Reason For Referral Reason For Referral No Information History Of Present Illness Encounter Date Complaint History Of Prese nt Illness No Information Functional Status Date Functional Assessmen t No Information Instructions Date Instruction Additional Infor mation No Information Assessments Type Assessment Date No Information Patient Care Teams Name Effective Dates (start - stop) Status Members No Information
--- OUTSIDE RECORDS SUMMARY | 2025-03-28 15:33 | XMS_ITS | Encounter Summary ---
Author Organization [facility] Address [address] [place] [address] Phone Care Team Providers Care Marine Equipment Preservation Inspector Name Role Phone Carmelo Espinosa MD Unavailable [phone] Denny Dubose MD Unavailable Tyson Licea MD [...] CDT Gender Identity Male 04/15/2019 11:26 PM FLUME WORKER Sexual Orientation Straight 10/08/2018 10 :46 AM [...] on filedocumented in this encounter Care Teams Marine Equipment Preservation Inspector Relationship Specialty Start Date End Date Tyson Licea MD [address] [facility] [address] [place] [address], [place] [address] PCP - General Family Practice 01/21/19 Carmelo Espinosa MD Consulting Physician Urology 11/06/17 Denny Dubose MD [address] [address] Medical Oncologist/Retail Buyer Medical Oncology 11/13/17 documented as of this encounter
--- OUTSIDE RECORDS SUMMARY | 2025-03-28 15:33 | XMS_ITS | Encounter Summary ---
Author Organization [facility] Address [address] [place] [address] Phone Care Team Providers Care Base Engineer Name Role Phone Carmelo Espinosa MD Unavailable [phone] Denny Dubose MD Unavailable Tyson Lieca MD Primary Care Provider Encounter Details Date [...] CDT Gender Identity Male 04/15/2019 11:26 PM MUSIC STORE MANAGER Sexual Orientation Straight 10/08/2018 10 :46 AM [...] on filedocumented in this encounter Care Teams Base Engineer Relationship Specialty Start Date End Date Tyson Licea MD [facility] [facility] [address] PCP - General Family Practice 01/21/19 Carmelo Espinosa MD Consulting Physician Urology 11/06/17 Denny Dubose MD [address] [address] Medical Oncologist/Metal Filer Medical Oncology 11/13/17 documented as of this encounter
--- OUTSIDE RECORDS SUMMARY | 2025-03-28 15:33 | XMS_ITS | Clinical Summary ---
Author Organization [facility] Address [address] [facility] Attn: Epic Prelude ADT DYAN D[place]Y [address] Care Team Providers Care Orchid Transplanter Name Role Phone Unavailable Primary Care Provider Unavailabl e Allergies No known active allergies Medications cyanocobalamin (VITAMIN B-12) 1,000 mcg Tablet, Sublingual Place 1 Tablet (1,000 mcg) under tongue daily. 90 Tablet 2 3 Active fenofibrate (LOFIBRA) 160 mg Tablet Take 1 Tablet (160 mg) by mouth daily. 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 90 Tablet 1 03/18/2025 12:20 PM CDT 5 Active carBAMazepine (TEGretol) 200 mg tablet Take 1 Tablet (200 mg) by mouth 2 times daily. 180 Tablet 3 02/02/2025 9:05 AM CDT 5 Active carBAMazepine (TEGretol) 200 mg tablet Take 1 tablet (200 mg total) by mouth 2 (two) times a day 180 Tablet 3 5 Active atorvastatin (LIPITOR) 20 mg tablet Take 1 Tablet (20 mg) by mouth daily at bedtime. 90 Tablet 1 03/18/2025 5:43 PM CDT 5 Active cholecalciferol , Vitamin D3, 50 mcg (2,000 unit) Tablet Take 1 Tablet (2,000 Units) by mouth daily. 90 Tablet 1 03/18/2025 5:43 PM CDT 5 Active triamcinolone acetonide (KENALOG) 0.5 % Cream APPLY TO THE AFFECTED AREA TWICE DAILY. 15 Gram 1 5 Active atorvastatin (LIPITOR) 20 mg tablet Take 1 Tablet (20 mg) by mouth daily at bedtime. 90 Tablet 1 12/20/2024 4:48 PM CDT 5 03/18/20 25 Discontinu ed(Reorder ) cholecalciferol , Vitamin D3, 50 mcg (2,000 unit) Tablet Take 1 Tablet (2,000 Units) by mouth daily. 90 Tablet 1 12/20/2024 4:48 PM CDT 5 03/18/20 25 Discontinu ed(Reorder ) Immunizations Immunization Administration Dates Next Due (ADACEL/BOOSTRIX)(10 YR UP) TDAP VACCINE, 0.5ML, IM 08/19/2022 (AREXVY)(60 YR UP) RSV, JEROMY MBINANT, PROTEIN SUBUNIT RSVPREF, ADJUVANT RECONSTITUTED, 0.5 ML, PF 02/07/2023 INFLUENZA VACCINE HIGH DOSE QUADRIVALENT 65 YR U P PF IM 03/12/2023 INFLUENZA VACCINE HIGH DOSE TRIVALENT SPLIT VIRUS, (65 YR UP), 0.5ML (PF), IM 02/02/2025 INFLUENZA VACCINE QUADRIVALENT 6 MOS UP PF IM Social History Tobacco Use Types Packs/Day Years Used Date Smoking Tobacco: Never Assessed Sex and Gender Information Value Date Recorded Sex Assigned at Not on file Legal Sex Male 3:27 PM CDT Gender Identity Not on file Sexual Orientation Not on file Plan of Treatment Health Maintenance Due Date Last Done Comments PNEUMOCOCCAL VACCINE 50+ YEA RS (1 of 1 - PCV) 1999 ZOSTER VACCINE (1 of 2) 1999 DTAP/TDAP/TD VACCINES (2 - T d or Tdap) 08/19/2032 08/19/2022 RSV VACCINE (60+ or ) Completed 02/07/2023 INFLUENZA VACCINE Completed 02/02/2025, , 02/14/2022 Insurance RX OROURKE PLANS (INTERNAL) [facility] Internal Plans RX AETNA Medicare Part D
--- OUTSIDE RECORDS SUMMARY | 2025-03-28 15:33 | XMS_ITS ---
Author Organization [facility] Address [address] [place] [address] Care Team Providers Care Anglesmith Name Role Phone Carmelo Espinosa MD Unavailable [phone] Denny Dubose MD Unavailable Tyson Licea MD Primary Care Provider Active Problems Problem Noted Date Diagnosed Date Infrarenal abdominal aortic aneurysm (AAA) witho ut rupture 10/20/2024 Assessment & Plan (10/20/2024 9:57 AM CDT): Stable 4.1 cm AAA. Discussed findings with the patient and his spouse, continue ongoing surveillance with repeat aortoiliac duplex in 1 year. Mixed hyperlipidemia 10/20/2024 Assessment & Plan (10/20/2024 9:57 AM CDT): Stable continue Lipitor Trigeminal neuralgia 01/06/2020 Assessment & Plan (01/05/2021 [...] yearly follow-up. Adenocarcinoma of prostate 11/12/2017 Current Treatment and Therapy Plans DENOSUMAB (PROLIA) INJECTION* Plan Start Date:01/21/2019 Plan Provider:Denny Dubose MD Linked Problems Adenocarcinoma of prostate ( HCC) Treatment Medications No medications scheduled. Leuprolide Every 3 Months - Prostate* Plan Start Date:12/05/2020 Plan Provider:Denny Dubose MD Linked Problems Adenocarcinoma of prostate ( HCC) Treatment Medications Current Day (Day 1 , Cycle 20 - Planned for 04/26/2025) Next Day (Day 1, Cycle 21 - Planned for 07/19/2025) leuprolide (ELIGARD)leuprolide acetate (3 month) (ELIGARD) leuprolide (3 month) (ELIGARD) subcutaneous injection 22.5 mg leuprolide (3 month) (ELIGARD) subcutaneous injection 22.5 mg Past Treatment and Therapy Plans Line Care Plan Name Start Date [...] -1 of 7 cycles Oncology Supportive Care Therapy Plan Plan Name Start Date Discontinue Date Treatment Medications Discontinue Reason Plan Provider IV MAINTENANCE THERAPY PLAN 12/11/2017 08/05/2023 No medications scheduled. Automatic discontinuation of dormant plans Clint Bruno MD PhD Lifetime Dose Tracking * Chemical Lifetime Dose Automatic Entry Manual Entr y DLP 7,096 mGycm 7,096 mGycm 0 mGycm
--- OUTSIDE RECORDS SUMMARY | 2025-03-28 15:33 | XMS_ITS | Clinical Summary ---
Author Organization [facility] Address [address] [place] [address] Care Team Providers Care Scrip Clerk Name Role Phone Carmelo Espinosa MD Unavailable Denny Dubose MD Unavailable Tyson Licea MD Primary Care Provider Allergies No known active allergies Medications atorvastatin (LIPITOR) 20 mg tablet 12/24/2018 Active leuprolide, 3 month, (ELIGARD) 22.5 mg syringe Inject 22.5 mg under the skin as directed Active denosumab (PROLIA) 60 mg/mL syringe Inject under the skin once One dose every 6 months Active fenofibrate (TRIGLIDE) 160 mg tablet Take [...] 200 mg tabletIndicatio ns:Trigeminal neuralgia Take 1 tablet (200 mg total) by mouth 2 (two) times a day 180 tablet 3 01/03/2025 01/04/20 26 Active cholecalciferol (VITAMIN D-3) 2000 unit tablet Take 1 tablet (2,000 Units total) by mouth daily Active Active Problems Problem Noted Date Diagnosed [...] Encounters Date Type Department Care Team Description 02/03/2025 Telephone [facility] Medicine Oncology [facility] Floor [address] [place] [phone] Denny Dubose MD 02/01/2025 9:45 AM CDT Infusion [facility] [address] [place] [address] Adenocarcinoma of prostate (HCC) (Primary Dx) 02/01/2025 8:45 AM CDT Office Visit [facility] Medicine Oncology [facility] Floor [address] [place] [phone] Denny Dubose MD Adenocarcinoma of prostate (HCC) (Primary Dx) 02/01/2025 7:45 AM CDT Lab [facility] - Lab Collection [address] [facility] Floor [address] [place] [address] Adenocarcinoma of prostate (HCC) 01/25/2025 8:30 AM CDT Clinical Support [facility] Floor 1, [address] [place] [id number] Other specified disorders of bone density and structure, left thigh (Primary Dx); Adenocarcinoma of prostate (HCC); 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; Encounter for monitoring androgen deprivation therapy 01/03/2025 8:30 AM CDT Office Visit [facility] Neurology [address] [place] [address] [address] [place] [address] Domonique Archuleta NP Trigeminal neuralgia from Last 3 Months Immunizations Immunization Administration Dates Next Due COVID-19 MRNA (MODERNA) .5 M L (50 MCG) VACCINE (12 YEARS AND UP) 02/10/2023 Influenza, Quadrivalent, Hig h Dose, Preservative Free, Intrr 03/12/2023,01/20/2020 Influenza, Quadrivalent, Spl it, Preservative Free, Intramuscular 02/14/2022 Influenza, Trivalent, High D ose, Split, Preservative Free, Intramuscular 03/11/2019,04/21/2018 Influenza, Unspecified 03/12/2023 Adreal SARS-CoV-2 Monovalent Vaccination (12+ Yrs) PURPLE 08/10/2020,07/20/2020 [...] CDT Gender Identity Male 04/15/2019 11:26 PM [employer]GER [employer] Sexual Orientation Straight 10/08/2018 10 :46 AM CDT Last Filed Vital Signs Vital Sign Reading Time Taken Comments Blood Pressure 116/68 02/01/2025 8:12 AM CDT Pulse 57 02/01/2025 8:12 AM CDT Temperature 36.2 C (97.2 F) 02/01/2025 8:12 AM CDT Respiratory Rate 18 02/01/2025 8:12 AM CDT Oxygen Saturation 97% 02/01/2025 8:12 AM CDT Inhaled Oxygen Concentration - - Weight 92.5 kg (204 lb) 02/01/2025 8:12 AM CDT Height 190.5 cm (6' 3) 01/03/2025 8:23 AM CDT Body Mass Index 25.5 01/03/2025 8:23 AM CDT Plan of Treatment Health Maintenance Due Date Last Done Comments Depression Screening 1950 Fall Risk Assessment 1950 Hepatitis C Screening 1950 Hepatitis B Screening 1968 Well Visit 65+ 2014 Covid-19 Vaccine ( season) 2025 09/28/2024, 03/02/2024, 08/11/2023, Additional history exists Influenza Vaccine (#1) 2025 , 03/12/2023, 02/14/2022, Additional history exists DTaP/Tdap/Td Vaccine (2 - Td or Tdap) 08/19/2032 08/19/2022 Zoster Vaccine Completed 10/03/2018, 07/30/2018 Pneumococcal vaccine 65+ Completed 12/01/2019, 10/2018 Abdominal Aortic Aneurysm (A AA) Screen Completed 11/02/2024, 10/20/2024, 10/20/2024, Additional history exists Procedures Procedure Name Priority Date/Time Associated Diagnosis Comments DIFFERENTIAL AUTO Routine 02/01/2025 7:3 0 AM CDT Adenocarcinoma of prostate (HCC) CBC WITH AUTO DIFFERENTIAL Routine 02/01/2025 7:30 AM CDT Adenocarcinoma of prostate (HCC) EGFR Routine 02/01/2025 7:30 AM CDT Adenocarcinoma of prostate (HCC) LACTATE DEHYDROGENASE Routine 02/01/2025 7:30 AM CDT Adenocarcinoma of prostate (HCC) COMPREHENSIVE METABOLIC PANEL Routine 02/01/2025 7:30 AM CDT Adenocarcinoma of prostate (HCC) PSA DIAGNOSTIC Routine 02/01/2025 7:30 AM CDT Adenocarcinoma of prostate (HCC) PSA DIAGNOSTIC Routine 02/01/2025 7:30 AM CDT Adenocarcinoma of prostate (HCC) VITAMIN D 25 HYDROXY Routine 02/01/2025 7:30 AM CDT Adenocarcinoma of prostate (HCC) TOTAL TESTOSTERONE Routine 02/01/2025 7: 30 AM CDT Adenocarcinoma of prostate (HCC) DEXA AXIAL SKELETON BONE DENSITY 1 OR MORE SITES Schedule Routine, Read Routine (OP Routine) 01/25/2025 8:29 AM CDT Adenocarcinoma of prostate (HCC) CT CHEST ABDOMEN PELVIS W CONTRAST Schedule Routine, Read Routine (OP Routine) 11/02/2024 10:49 AM CDT Adenocarcinoma of prostate (HCC) from Last 3 Months or Most Recently Relevant to Health Maintenance Results * Differential, auto (02/01/2025 7:30 AM CDT) Neutrophil abs 3.37 1.50 - 6.50 K/cumm Comment:Testing performed by : [facility], [address] [place] [address] Lymphocyte abs 1.31 0.80 - 3.30 K/cumm [facility] Comment:Testing performed by : [facility], [address] [place] [address] Monocyte abs 0.35 0.20 - 0.80 K/cumm [facility] Comment:Testing performed by : [facility], [address] [place] [address] Eosinophil abs 0.32 0.00 - 0.50 K/cumm [facility] Comment:Testing performed by : [facility], [address] [place] [address] Basophil abs 0.06 0.00 - 0.10 K/cumm [facility] Comment:Testing performed by : [facility], [address] [place] [address] Neutrophil pct 62.3 % [facility] Comment: Interpretive Data Percent cell count reference ranges are not reported, since discordance with absolute values may lead to misinterpretation of CBC data. Current Interpretive Data was last revised on 2017. Testing performed by: [facility], [address] [place] [phone] Lymphocyte pct 24.2 % [facility] Comment: Interpretive Data Percent cell count reference ranges are not reported, since discordance with absolute values may lead to misinterpretation of CBC data. Current Interpretive Data was last revised on 2017. Testing performed by: [facility], [address] [place] [address] Monocyte pct 6.5 % [facility] Comment: Interpretive Data Percent cell count reference ranges are not reported, since discordance with absolute values may lead to misinterpretation of CBC data. Current Interpretive Data was last revised on 2017. Testing performed by: [facility], [address] [place] [phone] Eosinophil pct 5.9 % [facility] Comment: Interpretive Data Percent cell count reference ranges are not reported, since discordance with absolute values may lead to misinterpretation of CBC data. Current Interpretive Data was last revised on 2017. Testing performed by: [facility], [address] [place] [address] Basophil pct 1.1 % [facility] Comment: Interpretive Data Percent cell count reference ranges are not reported, since discordance with absolute values may lead to misinterpretation of CBC data. Current Interpretive Data was last revised on 2017. Testing performed by: [facility], [address] [place] [address] Blood 02/01/2025 7:30 AM CDT 02/01/2025 7:34 AM CDT us Denny Dubose MD LAB BLOOD ORDERABLES Final Resul t [facility] [place] [address] * CBC with auto differential (02/01/2025 7:30 AM CDT) WBC 5.40 3.80 - 9.90 K/cumm Comment:Testing performed by : [facility], [address] [place] [address] Hgb 14.0 13.0 - 17.5 g/dL [facility] Comment:Testing performed by : [facility], [address] [place] [address] Hct 40.3 38.9 - 50.3 % [facility] Comment:Testing performed by : [facility], [address] [place] [address] Plt 250 150 - 400 K/cumm [facility] Comment:Testing performed by : [facility], [address] [place], [place] [phone] MPV 7.3 6.8 - 10.4 fL [facility] Comment:Testing performed by : [facility], [address] [place], [place] [phone] RBC 4.45 4.30 - 5.80 M/cumm [facility] Comment:Testing performed by : [facility], [address] [place], [place] [phone] MCV 90.4 81.3 - 96.4 fL [facility] Comment:Testing performed by : [facility], [address] [place], [place] [phone] MCH 31.3 27.1 - 33.3 pg [facility] Comment:Testing performed by : [facility], [address] [place], [place] [phone] MCHC 34.7 32.3 - 35.7 g/dL [facility] Comment:Testing performed by : [facility], [address] [place], [place] [phone] RDW CV 13.6 11.1 - 14.9 % [facility] Comment:Testing performed by : [facility], [address] [place], [place] [phone] NRBC abs 0.00 0.00 - 0.01 K/cumm [facility] Comment:Testing performed by : [facility], [address] [place] [address] Blood 02/01/2025 7:30 AM CDT 02/01/2025 7:34 AM CDT us Denny Dubose MD LAB BLOOD ORDERABLES Final Resul t [facility] [place] [address] * (ABNORMAL) eGFR (02/01/2025 7:30 AM CDT) eGFR 56(L) >=60 mL/min/1. 73 m2 Comment: Interpretive Data Reference Interval Normal >/= 90 mL/min/1.73m2 Mildly decreased* 60 - 89 mL/min/1.73m2 Mildly to moderately decreased 45 - 59 mL/min/1.73m2 Moderately to severely decreased 30 - 44 mL/min/1.73m2 Severely decreased 15 - 29 mL/min/1.73m2 Kidney Failure < 15 mL/min/1.73m2 *Relative to young adult level Estimated glomerular [...] interpretive data was last reviewed 2021. Blood 02/01/2025 7:30 AM CDT 02/01/2025 7:34 AM CDT us Denny Dubose MD LAB BLOOD ORDERABLES Final Resul t Performing Organization Address City/[facility]/ZIP Co de Phone Number [facility] [place] [address] * (ABNORMAL) Vitamin D 25 hydroxy (02/01/2025 7:30 AM CDT) Vitamin D 25-OH 25(L) 30 - 80 ng/mL Blood 02/01/2025 7:30 AM CDT 02/01/2025 7:35 AM CDT us Denny Dubose MD LAB BLOOD ORDERABLES Final Resul t Performing Organization Address City/State/[facility] Co de Phone Number [facility] [place] [address] * (ABNORMAL) Total testosterone (02/01/2025 7:30 AM CDT) Testosterone <5.0(L) 193.0 - 740.0 ng/dL Blood 02/01/2025 7:30 AM CDT 02/01/2025 8:07 AM CDT Denny Dubose MD LAB BLOOD ORDERABLES Final Resul t Performing Organization Address City/[facility] Co de Phone Number [facility] Department [place] [address] * PSA diagnostic (02/01/2025 7:30 AM CDT) PSA-Total 0.05 <=6.20 ng/mL Comment: Interpretive Data AGE SEX REFERENCE INTERVAL 0 minutes-150 years Female None 0 minutes-49 years Male None 50-59 years Male 0-3.90 60-69 years Male 0-5.40 70-79 years Male 0-6.20 80-150 years Male 0-6.20 The Juan Manuel PSA Total assay procedure was used. Results from different manufacturers or methods may not be comparable. Serial testing should be performed using the same method. Current interpretive data last revised 21. Blood 02/01/2025 7:30 AM CDT 02/01/2025 7:34 AM CDT us Denny Dubose MD LAB BLOOD ORDERABLES Final Resul t Performing Organization Address [facility] de Phone Number [facility] [place] [address] * PSA diagnostic (02/01/2025 7:30 AM CDT) PSA-Total 0.05 <=6.20 ng/mL Comment: Interpretive Data AGE SEX REFERENCE INTERVAL 0 minutes-150 years Female None 0 minutes-49 years Male None 50-59 years Male 0-3.90 60-69 years Male 0-5.40 70-79 years Male 0-6.20 80-150 years Male 0-6.20 The Juan Manuel PSA Total assay procedure was used. Results from different manufacturers or methods may not be comparable. Serial testing should be performed using the same method. Current interpretive data last revised 21. Blood 02/01/2025 7:30 AM CDT 02/01/2025 7:34 AM CDT us Denny Dubose MD LAB BLOOD ORDERABLES Final Resul t Performing Organization Address [facility] de Phone Number [facility] [place] [address] * Lactate dehydrogenase (LD) (02/01/2025 7:30 AM CDT) Pathologist [facility] Lactate dehydrogenase (LDH) 189 100 - 250 Units/L Blood 02/01/2025 7:30 AM CDT 02/01/2025 7:34 AM CDT us Denny Dubose MD LAB BLOOD ORDERABLES Final Resul t Performing Organization Address [facility] de Phone Number [facility] [place] [address] * (ABNORMAL) Comprehensive metabolic panel (02/01/2025 7:30 AM CDT) Pathologist [facility] Sodium 144 135 - 145 mmol/L Potassium, pl 4.6 3.3 - 4.9 mmol/L [facility] Chloride 108 97 - 110 mmol/L [facility] CO2 25 22 - 32 mmol/L [facility] Anion gap 11 2 - 15 mmol/L [facility] BUN 26(H) 6 - 25 mg/dL [facility] Creatinine 1.33(H) 0.80 - 1.30 mg/dL [facility] Glucose 114 70 - 199 mg/dL [facility] Comment: Interpretive Data Fasting glucose >/= 126 mg/dl is diagnostic for diabetes. Fasting is defined as no caloric intake [...] 2022. Calcium 9.6 8.5 - 10.3 mg/dL [facility] Bilirubin, total 0.2 0.1 - 1.2 mg/dL [facility] Protein, pl 7.2 6.5 - 8.5 g/dL [facility] Albumin 4.4 3.5 - 5.0 g/dL [facility] Alk phos 37(L) 40 - 130 Units/L [facility] ALT 16 7 - 55 Units/L [facility] AST 19 10 - 50 Units/L [facility] Blood 02/01/2025 7:30 AM CDT 02/01/2025 7:34 AM CDT us Denny Dubose MD LAB BLOOD ORDERABLES Final Resul t [facility] [place] [address] * Dexa Axial Skeleton Bone Density 1 or 2 Site (01/25/2025 8:29 AM CDT) Anatomical Region Laterality Modality Body N/A Radiographic Macy ging Narrative 01/25/2025 10:22 PM CDT Patient Name: Matthew Morrow Date of : 1950 Date of scan: 01/25/2025 Bone mineral density was performed on a HoloCellPhire Discovery Densitometer. Based on machine cross-calibration and precision studies the least significant changes of this densitometer is 0.024 g/cm2 at the spine, 0.020 g/cm2 at the total proximal femur, and 0.014g/cm2 at the forearm. HISTORY: This is a 74 y.o. male with a history of low bone mass, prostate cancer, and vitamin D deficiency. He reports that he quit smoking about 44 years ago. His smoking use included cigarettes. He has never used smokeless tobacco. Currently on treatment with calcium, vitamin D, denosumab (Prolia), anti-seizure medications, and androgen deprivation therapy. INDICATIONS: Treatment monitoring, vitamin D deficiency, androgen deprivation therapy, history of low bone mass, and male over age 70. FINDINGS: BONE MINERAL DENSITY OF THE LUMBAR SPINE Bone Mineral Density (BMD) of the lumbar spine was measured from L1-L3 and the average density was calculated to be 1.034 gm/cm2. This corresponds to a T-score (standard deviations from the mean of young adults) of -0.3. When compared to the previous study of 01/01/2023 there has been no significant changes in bone density. BONE MINERAL DENSITY OF THE PROXIMAL FEMUR Bone Mineral Density (BMD) of the left hip total was found to be 0.934 gm/cm2. This corresponds to a T-score standard deviations from the mean of young adults of -0.7. Femoral neck is 0.763 gm/cm2 with a T-score (standard deviations from the mean of young adults) of -1.2. When compared to the previous study of 01/01/2023 there has been no significant changes in bone density. SUMMARY: Bone mineral density shows evidence of low bone mass at the proximal femur and moderately increased fracture risk (Osteopenia). There has been no significant changes in bone density since previous measurement. L4 excluded from bone mineral density analysis of the lumbar spine due to bone density being more than 1 standard deviation discrepant relative to one adjacent vertebra. Clinical correlation is recommended. ADDITIONAL COMMENTS: Postmenopausal Women and Men Over 50: Diagnostic criteria: Osteoporosis: BMD at or below -2.5 T-score; Osteopenia (low bone mass): BMD between -1.0 and -2.5 T-score. If the patient has a history of a fragility fracture, a fracture that occurred with trauma equivalent to a fall from a standing position or less, then the diagnosis is osteoporosis regardless of bone density. The history and data sections of the bone mineral density scan were prepared by Mary Rudd)(Felicitas)(BRICE) CBDT who is accredited by the International Society of Clinical Densitometry. The overall patient assessment and scan interpretation were performed by Daylin Hassan M.D. who is certified by the International Society of Clinical Densitometry. [id number] us Denny Dubose MD IM DXA PROCEDURES Final Result * CT Chest Abdomen Pelvis W Contrast (11/02/2024 10:49 AM CDT) Anatomical Region Laterality Modality Body N/A Computed Tomogra phy 11/02/2024 11:5 1 AM CDT Impressions 11/02/2024 3:14 PM CDT 1. No evidence of metastatic disease in the chest, abdomen or pelvis. 2. 3.6 cm abdominal aortic aneurysm with mural thrombus, unchanged from the prior exam. 3. No suspicious osseous lesions, recommend correlation with planned same day bone scan. Dictated by: Oh Davis M.D. ([place]) The radiology attending physician has personally reviewed this study, and had reviewed and/or edited this written report and agrees with it. Electronically signed by: Talha Mccann M.D. Narrative 11/02/2024 3:14 PM CDT EXAMINATION: Computed tomography of the chest, abdomen and pelvis with intravenous contrast HISTORY: 74-year-old male with metastatic prostate cancer Bulan 5+4 in 2018 currently being treated with leuprolide, abdominal aortic aneurysm. Most recent PSA is 0.05, which is increased compared to a year ago. TECHNIQUE: Transaxial computed tomographic images of the chest, abdomen and pelvis were obtained with intravenous contrast according to the standard protocol after the uneventful administration of 69 mL Opti-Ray 350 intravenous contrast. COMPARISON: 12/02/2023 CT FINDINGS: Chest: The airways patent. Bibasilar atelectasis. Centrilobular emphysema. Right pulmonary scarring adjacent to a vertebral body spur. No pleural effusion or pneumothorax. The heart is normal in size. No pericardial effusion. Aortic valve and aortic atherosclerotic calcifications. Coronary artery atherosclerotic calcifications. Three-vessel aortic arch. The thyroid is normal. Esophagus is normal. No supraclavicular, axillary or mediastinal lymphadenopathy. Abdomen/Pelvis: Hepatic steatosis. Cholelithiasis. Small splenic hypoattenuating lesion, likely represents a cyst and is unchanged from the prior exam. Subcentimeter nonobstructing right renal pelvic stone. The pancreas is normal. The bilateral adrenals are normal. The bladder is normal. The prostate is diminutive in size. Colonic diverticulosis without diverticulitis. The appendix is normal. The small bowel is normal. No suspicious abdominal lymphadenopathy. Unchanged abdominal aortic aneurysm with crescentic mural thrombus, which measures 3.6 cm. Abdominal aortic atherosclerotic calcifications. Diffuse idiopathic skeletal hyperostosis. Multilevel degenerative disc disease. T7 vertebral body compression deformities are unchanged. Unchanged appearance of the L4 vertebral body. Schmorl's nodes. Procedure Note Talha Mccann MD - 11/02/2024 EXAMINATION: Computed tomography of the chest, abdomen and pelvis with intravenous contrast HISTORY: 74-year-old male with metastatic prostate cancer Bulan 5+4 in 2018 currently being treated with leuprolide, abdominal aortic aneurysm. Most recent PSA is 0.05, which is increased compared to a year ago. TECHNIQUE: Transaxial computed tomographic images of the chest, abdomen and pelvis were obtained with intravenous contrast according to the standard protocol after the uneventful administration of 69 mL Opti-Ray 350 intravenous contrast. COMPARISON: 12/02/2023 CT FINDINGS: Chest: The airways patent. Bibasilar atelectasis. Centrilobular emphysema. Right pulmonary scarring adjacent to a vertebral body spur. No pleural effusion or pneumothorax. The heart is normal in size. No pericardial effusion. Aortic valve and aortic atherosclerotic calcifications. Coronary artery atherosclerotic calcifications. Three-vessel aortic arch. The thyroid is normal. Esophagus is normal. No supraclavicular, axillary or mediastinal lymphadenopathy. Abdomen/Pelvis: Hepatic steatosis. Cholelithiasis. Small splenic hypoattenuating lesion, likely represents a cyst and is unchanged from the prior exam. Subcentimeter nonobstructing right renal pelvic stone. The pancreas is normal. The bilateral adrenals are normal. The bladder is normal. The prostate is diminutive in size. Colonic diverticulosis without diverticulitis. The appendix is normal. The small bowel is normal. No suspicious abdominal lymphadenopathy. Unchanged abdominal aortic aneurysm with crescentic mural thrombus, which measures 3.6 cm. Abdominal aortic atherosclerotic calcifications. Diffuse idiopathic skeletal hyperostosis. Multilevel degenerative disc disease. T7 vertebral body compression deformities are unchanged. Unchanged appearance of the L4 vertebral body. Schmorl's nodes. IMPRESSION: 1. No evidence of metastatic disease in the chest, abdomen or pelvis. 2. 3.6 cm abdominal aortic aneurysm with mural thrombus, unchanged from the prior exam. 3. No suspicious osseous lesions, recommend correlation with planned same day bone scan. Dictated by: Oh Davis M.D. ([place]) The radiology attending physician has personally reviewed this study, and had reviewed and/or edited this written report and agrees with it. Electronically signed by: Talha Mccann M.D. Denny Dubose MD IMG CT PROCEDURES Final Result from Last 3 Months or Most Recently Relevant to Health Maintenance Insurance [employer]NA MEDICARE AETNA MEDICARE Care Teams Scrip Clerk Relationship Specialty Start Date End Date Tyson Licea MD [facility] [address] [facility] [place] [address] PCP - General Family Practice 01/21/19 Carmelo Espinosa MD Consulting Physician Urology 11/06/17 Denny Dubose MD [address] [facility] [address] [place] [address] Medical Oncologist/Chip Separator Medical Oncology 11/13/17
--- OUTSIDE RECORDS SUMMARY | 2025-03-28 15:33 | XMS_ITS | Encounter Summary ---
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
[2025-03-28 19:15] LABS: Hematocrit 42.9 % (42.0-52.0); Hemoglobin 14.4 g/dL (14.0-18.0); Immature Granulocyte Percent A 0.5 % (0-0.5); Lymphocytes Absolute Auto 1.46 K/mm3 (0.9-3.2); Mean Corpuscular HGB Conc 33.6 g/dl (32-36); Mean Corpuscular Hemoglobin 31.0 pg (26-34); Mean Corpuscular Volume 92.3 fl (80-100); Nucleated Red Blood Cells Absolute Auto 0.000 K/mm3 (0.0-0.012); Nucleated Red Blood Cells Perc 0.0 % (0.0-0.2); Platelet Count Result 286 k/mm3 (150-375); Red Blood Count 4.65 M/mm3 (4.6-6.20); White Blood Count 6.3 K/mm3 (4.5-10.0)
[2025-03-28 19:22] LABS: Alanine Aminotransferase 18 U/L (6-50); Albumin Level 4.7 g/dL (3.5-5.1); Alkaline Phosphatase 39 U/L (38-126); Anion Gap 6 mmol/L (4-12); Aspartate Amino Transferase 31 U/L (17-59); Bilirubin,Total 0.5 mg/dL (0.2-1.3); Blood Urea Nitrogen 22 mg/dL (9-20); Calcium 9.9 mg/dL (8.4-10.2); Carbon Dioxide 26 mmol/L (22-30); Chloride 106 mmol/L (98-107); Cholesterol 222 mg/dL (0-200); Estimated Glomerular Filt Rate > 60; Glucose 106 mg/dL (65-110); HDL Direct 51 mg/dL; Potassium 4.9 mmol/L (3.4-5.0); Sodium 138 mmol/L (137-145); Total Protein 7.9 g/dL (6.3-8.2); Triglycerides 136 mg/dL (<150)
[2025-03-28 19:57] LABS: Iron 86 ug/dL (49-181)
[2025-03-28 20:07] LABS: Percent Iron Saturation 25 % (20-50)
[2025-03-28 20:33] LABS: Vitamin B12 965.0 pg/mL (239-931)
[2025-03-28 20:35] LABS: Thyroid Stimulating Hormone Reflex 1.580 uIU/mL (0.465-4.68)
[2025-03-28 20:44] LABS: Ferritin 205.00 ng/mL (11.1-264)
[2025-03-28 21:45] LABS: Hemoglobin A1C 5.9 % (<5.7)
== END 2025-03-28 15:14 | disposition home or self-care (01) ==
LOC: ANHGOSHLAB 15:14
PROVIDERS: PCP Family Medicine; Visit Provider Family Medicine
DX: D64.9 Anemia, unspecified (principal); R73.03 Prediabetes; E78.5 Hyperlipidemia, unspecified; Z00.00 Encounter for general adult medical examination without abnormal findings; G50.0 Trigeminal neuralgia; Z79.899 Other long term (current) drug therapy; E55.9 Vitamin D deficiency, unspecified
CPT/HCPCS: 36415; 80053; 80061; 82306; 82607; 82728; 82746; 83036; 83540; 83550; 84443; 85025